=== PATIENT | female | born 1960 | race Caucasian/White ===

== ENCOUNTER → 2017-12-06 16:18 | Outpatient (CLI) | payer OTHER, SELFPAY ==
[2017-12-06 17:39] LABS: Absolute Lymphocyte Count 1.96 X10^3/ul (0.83-4.51); Absolute Neutrophil Count 5.8 X10^3/uL (2.0-7.7); Basophil# 0.06 X10^3/uL; Basophil% 0.7 % (0-1); Eosinophil# 0.15 X10^3/uL; Eosinophils% 1.8 % (0-5); Hematocrit 41.8 % (37-47); Hemoglobin 14.2 g/dl (12.0-15.0); Lymphocyte # 1.96 X10^3/ul (4.0); Mean Corpuscular Hgb 30.7 pg (27.0-32.0); Mean Corpuscular Volume 90.5 fL (81-99); Mean Platelet Vol. 11.1 fl (6.2-12.0); Monocyte# 0.59 X10^3/uL; Monocyte% 6.9 % (0-10); Neutrophil # 5.75 X10^3/uL (2.7-7.7); Neutrophil % 67.4 % (47-70); Platelet Count 294 K/mm3 (150-450); RBC Distribution Width CV 13.5 % (11.6-14.6); RBC Distribution Width SD 44.4 fl (35.1-43.9); Red Blood Count 4.62 M/mm3 (4.2-5.4); White Blood Count 8.5 K/mm3 (4.4-11.0)
[2017-12-06 17:57] LABS: POSITIVE COUNT NO; POSITIVE DIFFERENTIAL NO; POSITIVE MORPHOLOGY NO
[2017-12-06 18:17] LABS: ALB/GLOB Ratio 1.1 RATIO (0.9-2.4); AST(SGOT) 18 U/L (15-37); Alanine Aminotransfer ALT/SGPT 28 U/L (13-56); Albumin, Serum 3.8 g/dL (3.2-5.0); Alkaline Phosphatase 88 U/L (45-117); Anion Gap 10 (5-15); BUN 29 mg/dL (7-18); BUN/Creat Ratio 43.3 RATIO (10-20); Calcium,Total 8.7 mg/dL (8.5-10.1); Chloride 105 mmol/L (98-107); Creatinine, Serum 0.67 mg/dL (0.55-1.02); EST Glomerular Filtration Rate 96 mL/min (>60); Est Glom Filt Rate - Afr Amer 116 mL/min (>60); Globulin 3.5 g/dL (2.2-4.2); Glucose 91 mg/dL (70-110); Potassium 3.9 mmol/L (3.5-5.1); Protein, Total 7.3 g/dL (6.4-8.2); Sodium Level 141 mmol/L (136-145)
== END ==
PROVIDERS: Family Provider Preventive Medicine Occupational Medicine; PCP Preventive Medicine Occupational Medicine; Visit Provider Family Medicine
DX: Z01.818 Encounter for other preprocedural examination (principal)
CPT/HCPCS: 36415; 80053; 85025

== ENCOUNTER 2017-12-22 06:06 | Day surgery (SDC) | payer OTHER, SELFPAY ==
[2017-12-22 06:28] VITALS: BP 140/88; PULSE 70; RESP 16; TEMP 36.6; O2SAT 95; BMI 42.2
[2017-12-22 08:52] VITALS: BP 140/88; BP 172/80; PULSE 71; RESP 16; TEMP 36.6; O2SAT 97
[2017-12-22 09:09] LABS: Source- Body Fluid SYNOVIAL
[2017-12-22 09:11] LABS: Body Fluid QC Type(s) BF1Q
--- NOTE | 2017-12-23 11:56 | PCM.OPRPT ---
Report of Operation Date of Procedure: 12/22/17 Pre-Operative Diagnosis: Ganglion cyst left foot Post-Operative Diagnosis: Same Surgery/Procedure Performed:: Aspiration and corticosteroid injection of left foot ganglion cyst Description of Surgical Findings:: See procedure details. 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 Carmichael Type of Anesthesia:: Local Specimen's removed: Fluid from cyst left foot sent to pathology for further evaluation Drains: None Estimated Blood Loss (mL): < 1 mL Fluids Replaced: None Description of Procedure: Indications/Procedure: This is a 57 year old female with chronic left foot pain. She has tried extensive treatment so far and symptoms persist. MRI on the left foot did show a ganglion cyst present at the level of the 5th metatarsal base and 5th metatarsal cuboid joint area. After reviewing the possible benefits vs risks (pain, infection, atrophy, rupture, steroid flare, etc), the patient elected to proceed with an ultrasound guided aspiration and corticosteroid injection to the ganglion cyst left foot. The patient was resting comfortably on the bed in room in the pre operative holding area of the hospital. Using the diagnostic ultrasound, the cyst was imaged and visualized plantar 5th metatarsal head extending to level of the 5th metatarsal cuboid joint; image was saved and printed. The patient's left foot was cleansed with 70% isopropyl alcohol. A total of 10mL of 0.25% Bupivicaine plain was given as a regional nerve block around the proximal foot to block the lateral column nerves. The foot was again cleansed with 70% isopropyl alcohol, and once anesthesia was obtained the cyst was again visualized and aspirated. Minimal fluid was aspirated (Less than 0.5mL) , and mainly blood, but did have some gel synovial appearing fluid consistent with a ganglion cyst. There was no necrosis, no purulence, no carrington or suspicious appearing material or fluid. The aspirated fluid was sent to pathology for further evaluation. The site was re-imaged using the diagnostic ultrasound, and cyst appeared to be deflated, image was saved and printed. At this time, 2mL of 0.25% Marcaine plain, 2mg (0.5mL) of Dexamethasone phosphate, and 20mg (0.5mL) of Depo Medrol was injected into the site of the cyst in sterile fashion. Bandaids applied with overlying shania bandage. Patient tolerated well with no complications. Recommended icing and compression therapy, which was discussed with her. Limit activities; no running, jumping, prolonged time on feet, or high impact activities for 1 week. She was discharged home in good condition. She is to follow up with me in 1 week or sooner if needed. All of her questions were answered. Grafts/Implants Used: None - Complications None
--- NOTE | 2017-12-23 12:09 | OP.PCM_ITS ---
Report of Operation Date of Procedure: 12/22/17 Pre-Operative Diagnosis: Ganglion cyst left foot Post-Operative Diagnosis: Same Surgery/Procedure Performed:: Aspiration and corticosteroid injection of left foot ganglion cyst Description of Surgical Findings:: See procedure details. hydrogen treater: Dr. Carmichael Type of Anesthesia:: Local Specimen's removed: Fluid from cyst left foot sent to pathology for further evaluation Drains: None Estimated Blood Loss (mL): < 1 mL Fluids Replaced: None Description of Procedure: Indications/Procedure: This is a 57 year old female with chronic left foot pain. She has tried extensive treatment so far and symptoms persist. MRI on the left foot did show a ganglion cyst present at the level of the 5th metatarsal base and 5th metatarsal cuboid joint area. After reviewing the possible benefits vs risks (pain, infection, atrophy, rupture, steroid flare, etc), the patient elected to proceed with an ultrasound guided aspiration and corticosteroid injection to the ganglion cyst left foot. The patient was resting comfortably on the bed in room in the pre operative holding area of the hospital. Using the diagnostic ultrasound, the cyst was imaged and visualized plantar 5th metatarsal head extending to level of the 5th metatarsal cuboid joint; image was saved and printed. The patient's left foot was cleansed with 70 % isopropyl alcohol. A total of 10mL of 0.25% Bupivicaine plain was given as a regional nerve block around the proximal foot to block the lateral column nerves. The foot was again cleansed with 70% isopropyl alcohol, and once anesthesia was obtained the cyst was again visualized and aspirated. Minimal fluid was aspirated (Less than 0.5mL) , and mainly blood, but did have some gel synovial appearing fluid consistent with a ganglion cyst. There was no necrosis , no purulence, no carrington or suspicious appearing material or fluid. The aspirated fluid was sent to pathology for further evaluation. The site was re- imaged using the diagnostic ultrasound, and cyst appeared to be deflated, image was saved and printed. At this time, 2mL of 0.25% Marcaine plain, 2mg (0.5mL) of Dexamethasone phosphate, and 20mg (0.5mL) of Depo Medrol was injected into the site of the cyst in sterile fashion. Bandaids applied with overlying shania bandage. Patient tolerated well with no complications. Recommended icing and compression therapy, which was discussed with her. Limit activities; no running , jumping, prolonged time on feet, or high impact activities for 1 week. She was discharged home in good condition. She is to follow up with me in 1 week or sooner if needed. All of her questions were answered. Grafts/Implants Used: None - Complications None
[2017-12-25 10:11] LABS: Pathologist Review Reviewed
== END 2017-12-22 08:40 | disposition home or self-care (01) ==
LOC: SDC 06:06 → AC 06:08
PROVIDERS: Family Provider Preventive Medicine Occupational Medicine; PCP Preventive Medicine Occupational Medicine; Visit Provider Podiatrist
DX: M67.472 Ganglion, left ankle and foot (principal); E03.9 Hypothyroidism, unspecified; M79.7 Fibromyalgia; G47.30 Sleep apnea, unspecified
CPT/HCPCS: 20612; 89060

== ENCOUNTER → 2018-02-14 16:36 | Outpatient (CLI) | payer OTHER, SELFPAY ==
[2018-02-21 13:46] LABS: HPV Reflexed? NOT INDICATED
== END ==
PROVIDERS: Visit Provider Obstetrics & Gynecology
DX: Z12.4 Encounter for screening for malignant neoplasm of cervix (principal)
CPT/HCPCS: 88175; G0145

== ENCOUNTER → 2018-03-26 14:34 | Outpatient (CLI) | payer OTHER, SELFPAY ==
[2018-03-26 15:46] LABS: Absolute Lymphocyte Count 2.14 X10^3/ul (0.83-4.51); Basophil# 0.07 X10^3/uL; Eosinophil# 0.15 X10^3/uL; Eosinophils% 2.2 % (0-5); Hematocrit 39.9 % (37-47); Hemoglobin 13.4 g/dl (12.0-15.0); Lymphocyte # 2.14 X10^3/ul (4.0); Lymphocyte % 31.4 % (19-41); Mean Corp Hgb Conc 33.6 g/gl (32-36); Mean Corpuscular Hgb 30.5 pg (27.0-32.0); Mean Corpuscular Volume 90.7 fL (81-99); Mean Platelet Vol. 11.4 fl (6.2-12.0); Monocyte% 5.9 % (0-10); Neutrophil # 4.03 X10^3/uL (2.7-7.7); Neutrophil % 59.2 % (47-70); Platelet Count 284 K/mm3 (150-450); RBC Distribution Width CV 13.3 % (11.6-14.6); RBC Distribution Width SD 43.5 fl (35.1-43.9); White Blood Count 6.8 K/mm3 (4.4-11.0)
[2018-03-26 15:48] LABS: ALB/GLOB Ratio 1.2 RATIO (0.9-2.4); AST(SGOT) 18 U/L (15-37); Alanine Aminotransfer ALT/SGPT 26 U/L (13-56); Albumin, Serum 3.8 g/dL (3.2-5.0); Alkaline Phosphatase 73 U/L (45-117); Anion Gap 8 (5-15); BUN 20 mg/dL (7-18); Calcium,Total 8.4 mg/dL (8.5-10.1); Chloride 107 mmol/L (98-107); EST Glomerular Filtration Rate 78 mL/min (>60); Est Glom Filt Rate - Afr Amer 95 mL/min (>60); Globulin 3.2 g/dL (2.2-4.2); Glucose 98 mg/dL (74-106); Potassium 3.7 mmol/L (3.5-5.1); Sodium Level 145 mmol/L (136-145)
[2018-03-26 16:08] LABS: POSITIVE COUNT NO; POSITIVE DIFFERENTIAL NO; POSITIVE MORPHOLOGY NO
== END ==
PROVIDERS: Family Provider Family Medicine; Visit Provider Family Medicine
DX: Z01.818 Encounter for other preprocedural examination (principal)
CPT/HCPCS: 36415; 80053; 85025

== ENCOUNTER → 2018-04-06 16:58 | Outpatient (CLI) | payer OTHER, SELFPAY ==
--- NOTE | 2018-04-06 17:30 | MRI_ITS ---
STUDY: MRI LEFT MIDFOOT REASON FOR EXAM: Female, 58 years old. Pain. TECHNIQUE: Standardized fat and water weighted pulse sequences were obtained in all 3 orthogonal planes. COMPARISON: June 13, 2017 FINDINGS: There is a joint effusion of the talonavicular articulation with capsular distention. Normal calcaneocuboid articulation. Normal navicular-cuneiform articulations. Normal intercuneiform articulations. Normal first tarsometatarsal articulation. Normal Lisfranc ligament. Normal second and third tarsometatarsal articulations. There is mild degenerative arthrosis of the cuboid fourth and cuboid fifth tarsometatarsal articulations. Normal first through third metatarsi. There is edema of the base and shaft of the fourth and fifth metatarsals, series 4 images 16/ through . Normal tibialis anterior tendon. Normal extensor hallucis longus tendon. Normal extensor digitorum longus tendons. There is fluid in the sheath of the peroneal tendons. Normal peroneus longus tendon and distal insertion. Partial split tear of the peroneus brevis tendon, series 7 image 39/45 through 42/45.. There is stable 0.6 cm cystic region adjacent to the distal insertion on the fifth metatarsal, series 7 image 28/45. Normal intrinsic muscles of the mid and forefoot region. Normal extensor digitorum brevis muscle. Normal subcutis adipose space. MRI/Lower Ext/No Jt/w/o IMPRESSION: Stress fractures of the fourth and fifth metatarsals. Tenosynovitis with partial split tear of the peroneal brevis and cystic region adjacent to the insertion. Electronically Signed: Helder Mcneill MD at 15:23 EDT , Service support ,
== END ==
PROVIDERS: Family Provider Preventive Medicine Occupational Medicine; PCP Preventive Medicine Occupational Medicine; Visit Provider Podiatrist
DX: M67.472 Ganglion, left ankle and foot (principal)
CPT/HCPCS: 73718

== ENCOUNTER → 2018-05-08 15:14 | Outpatient (CLI) | payer OTHER, SELFPAY ==
[2018-05-08 18:00] LABS: Absolute Lymphocyte Count 2.46 X10^3/ul (0.83-4.51); Absolute Neutrophil Count 4.6 X10^3/uL (2.0-7.7); Basophil# 0.06 X10^3/uL; Basophil% 0.8 % (0-1); Eosinophil# 0.14 X10^3/uL; Eosinophils% 1.8 % (0-5); Hematocrit 43.1 % (37-47); Hemoglobin 14.6 g/dl (12.0-15.0); Lymphocyte # 2.46 X10^3/ul (4.0); Lymphocyte % 31.4 % (19-41); Mean Corp Hgb Conc 33.9 g/gl (32-36); Mean Corpuscular Hgb 31.2 pg (27.0-32.0); Mean Corpuscular Volume 92.1 fL (81-99); Monocyte# 0.54 X10^3/uL; Monocyte% 6.9 % (0-10); Neutrophil # 4.61 X10^3/uL (2.7-7.7); Neutrophil % 58.7 % (47-70); Platelet Count 325 K/mm3 (150-450); RBC Distribution Width CV 13.3 % (11.6-14.6); Red Blood Count 4.68 M/mm3 (4.2-5.4); White Blood Count 7.8 K/mm3 (4.4-11.0)
[2018-05-08 18:01] LABS: POSITIVE COUNT NO; POSITIVE DIFFERENTIAL NO; POSITIVE MORPHOLOGY NO
[2018-05-08 18:15] LABS: ALB/GLOB Ratio 0.9 RATIO (0.9-2.4); AST(SGOT) 16 U/L (15-37); Alanine Aminotransfer ALT/SGPT 29 U/L (13-56); Albumin, Serum 3.6 g/dL (3.2-5.0); Alkaline Phosphatase 96 U/L (45-117); Anion Gap 7 (5-15); BUN 17 mg/dL (7-18); BUN/Creat Ratio 22.5 RATIO (10-20); Calcium,Total 8.4 mg/dL (8.5-10.1); Chloride 107 mmol/L (98-107); Creatinine, Serum 0.75 mg/dL (0.55-1.02); EST Glomerular Filtration Rate 84 mL/min (>60); Est Glom Filt Rate - Afr Amer 101 mL/min (>60); Globulin 3.8 g/dL (2.2-4.2); Glucose 114 mg/dL (74-106); Potassium 3.9 mmol/L (3.5-5.1); Protein, Total 7.4 g/dL (6.4-8.2); Sodium Level 140 mmol/L (136-145)
== END ==
PROVIDERS: Visit Provider Family Medicine
DX: Z01.818 Encounter for other preprocedural examination (principal)
CPT/HCPCS: 36415; 80053; 85025

== ENCOUNTER 2018-05-11 05:58 | Day surgery (SDC) | payer OTHER, SELFPAY ==
[2018-05-11] VITALS (7 sets, daily range): BP systolic 130–155; BP diastolic 79–93; PULSE 71–79; RESP 16; TEMP 36.1–36.8; O2SAT 91–95; BMI 44.8
--- NOTE | 2018-05-11 06:44 | EKG12_ITS ---
Test Reason : PRE OP Blood Pressure : / mmHG Vent. Rate : 066 BPM Atrial Rate : 066 BPM P-R Int : 172 ms QRS Dur : 086 ms QT Int : 442 ms P-R-T Axes : 081 -02 022 degrees QTc Int : 463 ms Normal sinus rhythm Poor R wave progression Confirmed by EDIE ACUNA, FLORA ([id number]), editor trade journal ANTWAN HELM ([id number]) on 05/17/2018 2:25:59 PM Referred By: Rai Townsend Confirmed By:FLORA IRIZARRY MD
--- NOTE | 2018-05-11 07:25 | RAD_ITS ---
STUDY: X-RAY - LEFT FOOT CLINICAL: Female, 58 years old. ORIF of the fourth and fifth metatarsals and cuboid joint. TECHNIQUE: 4 cone-down view(s) of the foot were obtained intraoperatively.. COMPARISON: None. FINDINGS: Intraoperative imaging provided for ORIF of the fourth and fifth metatarsals cuboid joints. RAD/Foot 2 Views IMPRESSION: Intraoperative imaging provided. Electronically Signed: Jya Brown MD at 12:54 EDT Tel [phone], Service support ,
[2018-05-11] MEDS: Cefazolin 2 GM in 0.9% Normal Saline 100 ML IV (07:30)
--- NOTE | 2018-05-11 07:30 | TESH_PTH ---
PATIENT: OREN RIOS LOC: [facility] [place] U#:[id number] AGE/SX: 58/F ROOM: RE05/11/[address]: RONAL DwyerM : 1960 BED: DIS: 05/11/2018 SPEC #: [id number] RECD: 05/11/18 10:28 STATUS: LEATHA NELLA #: [id number] KEMAR: 05/11/18 07:[address]: Rai Townsend DEPT: SURGICAL PATHOLOGY RECD BY: Oskar Baxter ENTERED: 05/11/18 11:42 SP TYPE: TENDON OTHR DR: Dr. Diego Flower, DO Tissues: Tendon and tendon sheath, NOS Procedures: Decalcification bone/plaque Surgery Specimen Level IV HEADER OPERATION: Arthrotomy, arthroplasty, ORIF fourth and fifth metatarsal cuboid joint PRE-OP DIAGNOSIS: Left foot pain, tear peroneus brevis tendon, degenerative changes fourth/fifth metatarsal cuboid joint, bone marrow edema bases of fourth/fifth metatarsals TISSUE SUBMITTED: Fourth and fifth metatarsal cuboid joint and peroneus brevis tendon ? left MICROSCOPIC DIAGNOSIS Fourth and fifth metatarsal cuboid joint and tendinous tissue, excision: Fragments of hyaline cartilage and bone with reparative and reactive change. AM:sara 05/15/18 MICROSCOPIC DESCRIPTION Slides are reviewed. GROSS DESCRIPTION Received in fixative is one container labeled with the patient's name and designated left fourth and fifth metatarsal cuboid joint. The specimen consists of multiple irregular fragments of indurated, pink-white soft tissue with adherent fragments of bone that in aggregate measure 2.5 x 2 x 0.2 cm. The specimen is totally submitted in one cassette after decalcification. / AM:sara 05/11/18 TC:5 [facility]: [id number]
[2018-05-11 07:33] LABS: Thyroid Stim Hormone (TSH) 2.33 uIU/mL (0.358-3.74)
[2018-05-11] MEDS: Calcium Chloride 1 GM/10 ML Syringe IV (08:00)
[2018-05-11] MEDS: Heparin 10,000 UNITS/10 ML Vial 10000 UNITS (08:00)
[2018-05-11] MEDS: Bupivacaine Mpf 0.5% 30 ML VIAL (09:49)
--- NOTE | 2018-05-11 10:02 | RAD_ITS ---
STUDY: X-RAY - LEFT FOOT CLINICAL: Female, 58 years old. Postoperative evaluation. TECHNIQUE: 3 view(s) of the foot. COMPARISON: None. FINDINGS: The patient is status post pinning at the base of the fourth and fifth metatarsal to the cuboid bone. RAD/Foot min 3 Views IMPRESSION: Pinning of the base of the fourth and fifth metatarsals to the cuboid bone. Electronically Signed: Jay Brown MD at 13:46 EDT Tel [phone], Service support ,
--- NOTE | 2018-05-11 10:02 | PCM.DC.POD ---
Discharge Diet: Light diet - advance as tolerated Discharge Activity: May Not Drive Weight Bearing Status: No weight bearing - No weightbearing left foot Keep extremity elevated above heart level: Left Leg - Keep left foot elevated using pillows for at least 50 minutes of every hour Call your doctor if your incision/area has: Continuous Slow Oozing, Sudden Increased Bleeding, Foul Smelling Discharge Call your doctor if you observe: Fever of 101 or Higher, Coldness, Increased Pain, Shortness of breath, Chest pain, Increased palpitations (irregular heartbeat), Calf discomfort, Uncontrolled pain Cleanse incision/area with: Do not get Incision Wet, Keep Dressing Clean & Dry Allergies/Adverse Reactions: Allergies No Known Allergies Allergy (Verified 01/21/16 15:27) Medications to take at Discharge Levothyroxine [Synthroid] 75 mcg PO DAILY 01/21/16 Pregabalin [Lyrica] 150 mg PO TID 01/21/16 Cholecalciferol (Vitamin D3) [Vitamin D3] 2,000 unit PO DAILY 12/22/17 Ibuprofen [Ibu] 800 mg PO TID #30 tab 05/11/18 Oxycodone HCl/Acetaminophen [Percocet 5/325] 1 - 2 tab PO Q6H PRN PRN #30 tab 05/11/18 The following prescriptions were given: Oxycodone HCl/Acetaminophen [Percocet 5/325] 1 - 2 tab PO Q6H PRN PRN #30 tab PRN Reason: Pain Ibuprofen [Ibu] 800 mg PO TID #30 tab Primary Care Physician: Diego Flower DO [Primary Care Provider] - Test Results: Test results from this visit will be discussed in further detail at your follow-up appointment, if applicable. Please Follow Up With: Rai Townsend DPM When: within 1 week, sooner if needed
--- NOTE | 2018-05-11 10:09 | OP.PCM_ITS ---
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; Subluxation 4th/5th metatarsal cuboid joint, peroneus brevis tendon tear, cyst all left foot Post-Operative Diagnosis: Same Surgery/Procedure Performed:: Arthrotomy arthroplasty 4th/5th metatarsal cuboid joint, excision of cyst, repair of peroneus brevis tendon, bone marrow aspiration from calcaneus with injection of concentrated bone marrow aspirate into 4th/5th metatarsal cuboid joint, open reduction and fixation of 4th/5th metatarsal cuboid joint - all left foot Description of Surgical Findings:: Degenerative changes of the 4th/5th metatarsal cuboid joint, subluxation of the 4th/5th metatarsal cuboid joint, cyst at level of the 4th/5th metatarsal cuboid joint, peroneus brevis tendon tear, all left 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 Fonseca Type of Anesthesia:: General Specimen's removed: debrided 4th\5th metatarsal cuboid joint, debrided peroneus brevis tendon and removed cyst all left foot sent to pathology Estimated Blood Loss (mL): 20mL Description of Procedure: Indications: Patient is a 58 year old female with chronic left lateral column foot pain. Pain persists despite extensive nonsurgical care custom foot orthotics, icing, rest, activity modifications, immobilization with CAM Walker, AFO bracing, corticosteroid injections, aspiration of cyst, NSAIDs, and medications. She continues to have pain. Pre-operative MRI has shown arthritic changes of the 4th / 5th metatarsal cuboid joints with bone marrow edema, well as a cyst and split peroneus brevis tear, there was also noted to be findings consistent with subluxation of the 4th metatarsal base - this corresponded to the site where her pain was located, along with swelling. We discussed all of the options since she continues to have pain despite nonsurgical care. We discussed arthrotomy/arthroplasty with open reduction and fixation of the 4th/ 5th metatarsal cuboid joints along with bone marrow aspiration and injection of concentrated bone marrow aspirate into the site, and debridement and repair of peroneus brevis tendon, we also discussed possible arthrodesis of the 4th/5th metatarsal cuboid joint. I had patient get a second opinion with Dr. Mamadou Rocha, who also discussed findings and options with the patient. We all agreed to proceed with arthrotomy/arthroplasty with open reduction and fixation of the 4th/5th metatarsal cuboid joints along with bone marrow aspiration and injection of concentrated bone marrow aspirate into the site, and debridement and repair of peroneus brevis tendon - try to avoid arthrodesis at this time. This was discussed with patient in great detail. All of the possible benefits vs risks, and potential complications were discussed with her in great detail. Patient would like to avoid arthrodesis, however she is well aware pain and symptoms may persist, and she may ultimately need arthrodesis in the future. This was discussed with her in detail. Typical healing time was reviewed with her as well. All of her questions were answered, and she would like to proceed. The consent forms were reviewed with her, and she freely signed them. No guarantees were given nor implied. Operative Procedure: Patient was brought back into the operating room and was placed on the operative room table in the supine position. She was carefully secured to the operating room table with a safety belt around her waist. A timeout was performed and the patient was properly identified and the surgical plan was confirmed. The patient received 2 grams of IV cefazolin for antibiotic prophylaxis. The patient received general anesthesia per the anesthesia team. A well padded pneumatic tourniquet was applied around the patient's left thigh. The left foot was scrubbed, prepped and draped in the usual aseptic fashion. Bone marrow aspiration and injection of concentrated bone marrow aspirate: Attention was directed to the lateral wall of the left calcaneus at the safe zone. A Jamshidi needle was inserted into the calcaneal body through the safe zone of the lateral calcaneal wall. The trocar was removed. 60mL of bone marrow aspirate was obtained through the cannula. The Jamshidi (with trocar and cannula ) needle was redirected multiple times. The bone marrow aspirate was spun down to 3mL of concentrated bone marrow aspirate for later use. The concentrated bone marrow aspirate was injected at the end (just after skin closure) of the procedure into the 4th/5th metatarsal cuboid joint. The left foot was exsanguinated using an Esmarch bandage and the left foot was elevated, the left thigh pneumatic tourniquet was inflated to 350mmHg. Arthrotomy/Arthroplasty / Open Reduction and Fixation of the 4th/5th metatarsal cuboid joints: A skin incision was made overlying the 4th/5th metatarsal cuboid joints using a 15 scalpel blade. Careful dissection was completed down to the capsule of the 4th/5th metatarsal cuboid joint, where an arthrotomy was completed at the dorsal aspect. The 4th/5th metatarsal cuboid joints were visualized. It was note there was some subluxation of the 4th metatarsal base more plantar than normal. There were some osteophytes to the dorsal joint surfaces along with some yellow nonviable cartilage present at the dorsal aspects. There was a 0.6cm fluid filled cyst present overlying the 5th metatarsal base, as well as a hard osseous like fragment to the plantar aspect of the 5th metatarsal base. At this time the osteophytes were debrided and the nonviable yellow cartilage was also debrided away (dorsal aspect). The sites of the debrided cartilage was drilled with a 0.062 inch kwire to help stimulate fibrocartilage. The cyst was excised and osseous like fragment was also excised using a 15 scalpel blade. The debrided and excised tissue were sent to pathology. The remaining cartilage and tissues appeared healthy and viable. The site was flushed out with copious amounts of normal saline solution. The 4th metatarsal base was reduced back into normal alignment, and was fixated with 1 0.062 inch kwire going from the base of the 4th metatarsal to the cuboid. The 5th metatarsal was also placed into normal alignment and was fixated with 1 0.062 inch kwire going from the base of the 5th metatarsal to the cuboid. Proper reduction and fixation were confirmed visually and also with intra operative fluoroscopy. Alignment was anatomic. The sites were stable and in good position. The site was flushed out with copious amounts of normal saline solution. The dorsal 4th/5th metatarsal cuboid capsule and ligaments were repaired using 3-0 Vicryl. The subcutaneous tissue was reapproximated using 3-0 Vicryl. The skin was reapproximated using 4-0 Monocryl. The concentrated bone marrow aspirate was injected as noted above. Peroneus Brevis Tendon Debridement/Repair: A longitudinal skin incision was made over the peroneus brevis tendon at the level of the hindfoot (from the tip of the fibula heading toward the base of the 5th metatarsal). Careful dissection was completed down to the peroneal tendon sheath. The peroneal tendon sheath was incised and the peroneus brevis tendon was visualized. There was noted to be a longitudinal split year with significant flattening present. The tear extended from the base of the 5th metatarsal insertion point to the just slightly distal to the tip of the fibula. There was some yellow nonviable tendinosis present to the tendon at this level as well. The remainder of the tendon was healthy and viable with no tear present proximally to this site. The tendon was debrided using a 15 scalpel blade, excising the nonviable tendinosis , and the peroneal tendon was repaired and tubularized using 3-0 Vicryl. The site was flushed out with copious amounts of normal saline solution. The subcutaneous tissue was reapproximated using 3-0 Vicryl. The skin was reapproximated using 4-0 Monocryl. Of note the pneumatic tourniquet was deflated at 90 minutes at time of closure. Hemostasis had been achieved. There was normal temperature to the foot with CFT < 2 seconds to all toes. Cavilon was painted to the skin edges of the sutures skin incisions, and steristrips were applied across the sutured skin incisions. A total of 20mL of a 50/50 mixture of 1% Lidocaine plain and 0.5% Bupivacaine plain was given as a local block around the surgical site for post op pain control. A dressing was applied which consisted of Betadine soaked Adaptic, 4x4 gauze, Kerlix and Jace bandage. Patient tolerated the above procedure and anesthesia well with no complications. The patient was transported from the operating room to the recovery room with vital signs stable and in good condition. Post operative orders were placed. Left foot xrayx were obtained, 3 views, which confirmed proper placement and fixation, as well as proper alignment of he 4th/5th metatarsal cuboid joints. Post operative instructions were dispensed both verbal and written, these were reviewed with patient and her family present with her today. Patient to remain nonweightbearing to the left foot at all times , keep the left foot elevated for at least 50 minutes of every hour, and keep the dressing clean, dry, and intact. She was given a prescription for Percocet 5 /325mg 1-2 tabs PO q 6 hours PRN pain as well as Ibuprofen 800mg PO TID for pain control. Patient to follow up with me in 1 week, sooner if needed. Grafts/Implants Used: 2 x 0.062 kwires
== END 2018-05-11 13:59 | disposition home or self-care (01) ==
LOC: SDC 06:00 → AC 06:01
PROVIDERS: Family Provider Preventive Medicine Occupational Medicine; PCP Preventive Medicine Occupational Medicine; Visit Provider Podiatrist
PROC: (CPT 28022; principal; 2018-05-11 07:15)
DX: M19.072 Primary osteoarthritis, left ankle and foot (principal); S93.322A Subluxation of tarsometatarsal joint of left foot, initial encounter; M25.872 Other specified joint disorders, left ankle and foot; G47.30 Sleep apnea, unspecified; M79.7 Fibromyalgia; E03.9 Hypothyroidism, unspecified
CPT/HCPCS: 28022; 28485 ×2; 28899; 73620; 73630; 76000; 84443; 88304; 88305; 88311; 93005; C1713; J7120; J2405

== ENCOUNTER 2018-06-19 07:09 | Emergency (ER) | payer OTHER, SELFPAY ==
[2018-06-19 07:09] VITALS: BP 163/86; PULSE 77; RESP 15; TEMP 36.1; BMI 45.1
--- NOTE | 2018-06-19 07:40 | ED.VISSUMM ---
- ER Visit Summary Date of Service: 06/19/18 Patient is a private outpatient of Dr. Townsend. She has a pin in her left foot that he tried to remove in his office yesterday. He was unable to remove the pin in the office and advised her to come to the ED today for removal under fluoroscopy. He was called on her arrival and is at bedside to evaluate her. This note was generated with [employer] dictation software. It may contain incorrect words, spelling, and punctuation that were not noted in review of the chart prior to signing ED Disposition - Plan for ED Patient: Chief Complaint: Other, Pain/Inj Referrals: Diego Flower DO [Primary Care Provider] -
--- NOTE | 2018-06-19 08:56 | PCM.DC.POD ---
Discharge Diet: No Restrictions Weight Bearing Status: Weight bearing as tolerated - May weightbear on left foot with use of CAM Walker, but limit weightbearing and activity as much as possible. Keep extremity elevated above heart level: Left Leg - Elevate left foot as much as possible. Call your doctor if your incision/area has: Continuous Slow Oozing, Sudden Increased Bleeding, Foul Smelling Discharge Call your doctor if you observe: Fever of 101 or Higher, Coldness, Increased Pain, Shortness of breath, Chest pain, Calf discomfort, Uncontrolled pain Cleanse incision/area with: Do not get Incision Wet, Keep Dressing Clean & Dry Allergies/Adverse Reactions: Allergies No Known Allergies Allergy (Verified 06/19/18 07:11) Medications to take at Discharge Levothyroxine [Synthroid] 75 mcg PO DAILY 01/21/16 Pregabalin [Lyrica] 150 mg PO TID 01/21/16 Cholecalciferol (Vitamin D3) [Vitamin D3] 2,000 unit PO DAILY 12/22/17 Ibuprofen [Ibu] 800 mg PO TID #30 tab 05/11/18 Oxycodone HCl/Acetaminophen [Percocet 5/325] 1 - 2 tab PO Q6H PRN PRN #30 tab 05/11/18 Amoxicillin/Potassium Clav [Augmentin 875-125 Tablet] 06/19/18 Primary Care Physician: Diego Flower DO [Primary Care Provider] - Test Results: Test results from this visit will be discussed in further detail at your follow-up appointment, if applicable. Please Follow Up With: Rai Townsend DPM When: on , sooner if needed
--- NOTE | 2018-06-19 08:59 | PCM.PROGNOTE ---
Subjective: Patient presents today for migrated kwire left foot from left foot surgery on 05/11/18. She has no new complaints. - Physical Exam General: Alert, Oriented x3, Cooperative, No apparent distress Extremities: Capillary Refill Less than 3 Seconds, No Calf Tenderness, Peripheral Pulses Normal, - - Left foot with no cellulitis, no drainage, no evidence of infection. Skin intact, neurovascular status intact to foot, left. No visible abscess, no maloder, no necrosis, no fluctuance, no evidence of compartment syndrome left foot. Psych/Mental Status: Alert and oriented to time, place, person, mood and affect Vital Signs Temp Pulse Resp BP 96.9 F L 77 15 163/86 H 06/19/18 07:09 06/19/18 07:09 06/19/18 07:09 06/19/18 07:09 Weight: 119.4 kg Body Mass Index (BMI) 45.1 Medical Necessity - Tobacco Use Smoking Status: Never smoker Assessment/Plan All Active Problems Postmenopausal (Acute) Endometrial thickening on ultra sound (Acute) Retained hardware left foot. She is here for removal of migrated kwire left foot. She would like to have this removed, again reviewed procedure as well as possible benefits vs risks, and alternative options. Consent form has been reviewed with her, and she has freely signed it. The patient was resting comfortable in bed. The skin on the left foot was cleansed with 70% isopropyl alcohol. A total of 30mL of 1% Lidocaine plain with 1:100,000 epi was given as a local nerve block around the heel and 4th ray of the left foot. The left foot was scrubbed, prepped and draped in aseptic fashion. Once anesthesia was obtained a 1cm linear skin incision was made to the medial heel as well as to the dorsal aspect of the 4th metatarsal base using a 15 blade. Careful dissection was completed down to the kwire. It was visualized on mini C-arm flouroscopy. The kwire had to be identified and pushed out from the heel due to significant proximal migration into the 4th metatarsal. The kwire was removed in toto. The site was flushed out with copious amounts of normal saline solution. The skin incisions were reapproximated using 4-0 Nylon. The incision sites were painted with betadine solution. A dressing was applied which consisted of gauze, kerlix and shania dressing. Patient tolerated procedure well with no complications. There was ~20mL of blood loss, hemostasis achieved at end of procedure. Vascular status was intact at end of procedure with CFT < 2 seconds to all toes and foot normal temperature. Post procedure instructions were given. Limit activity on foot, and keep foot elevated as much as possible. Keep foot protected in CAM Walker. She has percocet for pain control, and also going to finish course of Augmentin PO q 12 hours as prescribed yesterday. She is to follow up with me in the office on . She was discharged home in good condition.
--- NOTE | 2018-06-19 09:09 | ED.RN ---
dr hernandez gave pt dc instructions pt wheeled to the car.
== END 2018-06-19 09:11 | disposition home or self-care (01) ==
LOC: ED 09:04
PROVIDERS: Emergency Provider Podiatrist; Family Provider Preventive Medicine Occupational Medicine; PCP Preventive Medicine Occupational Medicine
DX: T84.293A Other mechanical complication of internal fixation device of bones of foot and toes, initial encounter (principal); Z18.89 Other specified retained foreign body fragments; Y83.8 Other surgical procedures as the cause of abnormal reaction of the patient, or of later complication, without mention of misadventure at the time of the procedure; Y92.9 Unspecified place or not applicable
CPT/HCPCS: 28192; 76000; 99282

== ENCOUNTER 2018-07-23 15:30 | Outpatient (RCR) | payer OTHER, SELFPAY ==
--- NOTE | 2018-07-06 08:13 | HP.PTEVAL ---
Patient's Visit Information OREN RIOS is a 58 year old F referred to Physical Therapy by Rai Townsend with a diagnosis of L ankle arthroplasty, bone marrow aspiration, ORIF pinning of 4th/5th met. Date of Evaluation: 07/04/18 Physical Therapist: Dionisio Weber - Visit Plan Frequency: 2-3x /Week Duration: 4 Weeks Plan: Start with ROM of L ankle, can start with initial strengthening as tolerated both for ankle and intrinsic stregnth. Progress to proprioception exercises as tolerated. - Subjective Subjective: Pt. is here today for her initial evaluation with diagnosis of L ankle arthroplasty, bone marrow aspiration and ORIF pinning of 4th/5th metatarsal/cuboid. Pt. reports not having relief with conservative care and ultimately needing surgery. Pt. had her initial surgery ~1 month ago, but had a subsequent surgery to fix a loosening of her pinning of the 5th metatarsal. Pt. is currently in a CAM boot, but is to slowly progress into her shoe (increasing 1 hour per day). Pt. reprots being compliant. She does have some N/T on the bottom of her L foot, but has improved since being in her shoe. She reports minimal pain with walking, and does not use and AD. Pt. is only negotiating stairs x1 daily due to not feeling very comfortable with this yet. Pt. does have a history of R TKA ~1 year ago and reports she has a need for the left as well. 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 - Pain L foot Pain Intensity (Out of 10): 1 Pain Intensity Range: 0, 4 - Objective POSTURE: Pt. has normal stance with CAM walker, but decreased L LE wt. shift. Pt. has normal iliac crest heights. PALPATION: Pt. has increased edema of L foot, non pitting. Pt. has healing incisions both at medial and lateral foot (to be removed later this week). Pt. has no signs of infection. Negative toyin's sign. Pt. has tenderness along plantar/doral surface of medial and lateral of 4th/5th ray. NEURO: Pt. has normal senation to light and sharp touch. Pt. has 2+ patellar/achilles DTR bilaterally. ROM: R ankle- DF 16deg, PF 40deg, INV 18deg, EVR 16deg. L ankle- DF 6deg, PF 30deg, INV 5deg, EVR 4deg. Pt. has normal ROM of B knees. MMT: R ankle/knee 5/5 throughout. L ankle- DF 4/5, PF 4/5, INV 4-/5, EVR 4-/5. L knee 5/5 throughout. GAIT: Pt. did not have shoe this date, but good tolerance to WBing with CAM boot. Pt. is weaning out of CAM walker at home. STAIRS: reciprocal pattern wtih CAM boot. Pt. is bring normal shoe to wear next visit. - Goals Goal 1:: Pt. to be I with HEP. Goal Time Frame: 4-6 Weeks Goal 2:: Pt. to have full ROM of L ankle without increase in symptoms. Goal Time Frame: 4-6 Weeks Goal 3:: Pt. to have increased L ankle MMT by 1/2 grade throughout. Goal Time Frame: 4-6 Weeks Goal 4:: Pt. to ambulate without CAM boot unlimited distances without increase in symptoms. Goal Time Frame: 4-6 Weeks Goal 5:: Pt. to return to all work activities without issues. Goal Time Frame: 4-6 Weeks - Rehabilitation Potential Physical Therapy Diagnosis: Pt. has signs and symptoms consistent with L ankle arthroplasty, bone marrow aspiration and ORIF pinning of 4th/5th metatarsal/cuboid and subsequent hypombility, weakness, difficulty with gait and increased pain. She would benefit from PT to increase ROM and strength, progressing to proprioception exercises as tolerated in order to increase tolerance to all WBing and work related activities. Rehabilitation Potential: Excellent - Anticipated Interventions Patient/Client Instruction: Educate patient on: Condition, Plan of Care, Risk Factors, Benefits of Fitness Program For the Purpose of:: To improve decision making, To facilitate caregiver knowledge, To improve self management, To prevent re-injury, To improve ability to perform tasks related to life management, To improve tolerance to ADL's Therapeutic Exercise to Include: Strength training, Power training, Balance training, Postural training, Flexibilty training, Gait and locomotor training, Passive ROM, Active ROM For the Purpose of:: To decrease pain, To decrease swelling/inflammation, To increase ROM, To improve nutrient delivery to tissue, To improve gait and locomotor functions, To improve health of tissue, To decrease soft tissue restriction, To increase flexibility/ROM Manual Therapy Techniques to Include: Scar massage, Passive ROM, Soft tissue mobilization For the Purpose of:: To decrease pain, To decrease swelling/inflammation, To increase ROM IF ES: Yes Cryotherapy (ice pack, ice massage): Yes Vasopneumatic device: Yes For the Purpose of:: To decrease pain, To decrease swelling/inflammation, To increase ROM Thank you for the opportunity to evaluate your patient. For Medicare and Medicare HMO plans, please review the plan of care and approve it. It will need to be FAXED BACK to us at [phone] for Medicare purposes. Please let me know if there are questions or concerns regarding this plan of care. Physician Signature: Date:
--- NOTE | 2018-08-31 09:12 | HP.PT.NRP ---
HP - Discharge Summary (1) - Patient Information OREN RIOS was seen in my office for initial evaluation on 07/04/18. The following Plan of Care was established for this patient: Initial Frequency: 2-3x /Week Initial Duration: 4 Weeks - Anticipated Interventions Patient/Client Instruction: Educate patient on: Condition, Plan of Care, Risk Factors, Benefits of Fitness Program For the Purpose of:: To improve decision making, To facilitate caregiver knowledge, To improve self management, To prevent re-injury, To improve ability to perform tasks related to life management, To improve tolerance to ADL's Therapeutic Exercise to Include: Strength training, Power training, Balance training, Postural training, Flexibilty training, Gait and locomotor training, Passive ROM, Active ROM For the Purpose of:: To decrease pain, To decrease swelling/inflammation, To increase ROM, To improve nutrient delivery to tissue, To improve gait and locomotor functions, To improve health of tissue, To decrease soft tissue restriction, To increase flexibility/ROM Manual Therapy Techniques to Include: Scar massage, Passive ROM, Soft tissue mobilization For the Purpose of:: To decrease pain, To decrease swelling/inflammation, To increase ROM IF ES: Yes Cryotherapy (ice pack, ice massage): Yes Vasopneumatic device: Yes For the Purpose of:: To decrease pain, To decrease swelling/inflammation, To increase ROM This patient was last seen in our office 07/23/18. Pertinent comments regarding their Physical therapy will appear below: Pt. was treated after her ankle arthoscopy in PT. Pt. was treated with initially ROM and progressed to strengthening and proprioception. Pt. was doing very well at our last visit and had returned to work. Pt. was to trial exercises on her own and follow up with PT as needed. Pt. as not been seen in ~6 weeks and will be DC from PT at this point in time. At this point I will be discontinuing this patient from physical therapy. I would be happy to see this patient again in the future if found appropriate by the physician. Thank you! Dionisio Weber
== END 2018-07-23 19:00 | disposition home or self-care (01) ==
LOC: PT 15:30
PROVIDERS: Family Provider Preventive Medicine Occupational Medicine; PCP Preventive Medicine Occupational Medicine; Visit Provider Podiatrist
DX: Z98.890 Other specified postprocedural states (principal)
CPT/HCPCS: 97110; 97162; 97530

== ENCOUNTER 2020-03-25 11:59 | Outpatient (RCR) | payer SELFPAY | END 2020-04-05 23:59 | LOC: NS 11:59 | PROVIDERS: PCP Preventive Medicine Occupational Medicine; Visit Provider Specialist | DX: Z71.3 Dietary counseling and surveillance (principal); E66.8 Other obesity; Z68.42 Body mass index [BMI] 45.0-49.9, adult | CPT/HCPCS: 97802 ==

== ENCOUNTER → 2020-03-27 13:12 | Outpatient (CLI) | payer OTHER, SELFPAY ==
[2018-09-04 16:34] VITALS: BMI 39.4
--- NOTE | 2020-03-27 13:23 | CT_ITS ---
STUDY: CT LEFT LOWER EXTREMITY/KNEE (SHREYA PROTOCOL) WITHOUT CONTRAST REASON FOR EXAM: Female, 60 years old. Varus deformity RADIATION DOSAGE (If Supplied By Facility): CTDIvol = ( ) mGy, DLP = ( ) mGycm TECHNIQUE: Transaxial CT imaging of the hip, knee, and ankle was performed. Coronal and sagittal images were reformatted. Individualized dose optimization techniques were used for this CT. COMPARISON: Prior comparison studies are not available for review at this time. FINDINGS: Normal urinary bladder. There is no pelvic fluid. There is no pelvic lymphadenopathy or mass lesion. There is absence of the uterus consistent with a prior hysterectomy. Normal visualized small intestine. Normal visualized colon. Normal visualized pelvic and femoral arteries. Normal abdominal wall. Normal visualized bilateral iliac wings, sacroiliac joints and visualized sacrum. Normal visualized bilateral superior and inferior pubic rami. Normal pubic symphysis. Normal ischial tuberosities. Normal visualized left femoral head. Normal left acetabulum. Normal left hip joint. There is degenerative subarticular sclerosis as well as degenerative periarticular spurring of the medial femoral condyle and medial tibial plateau. There is moderate narrowing of the articular joint space of the medial knee compartment. Moderate periarticular spurring of the lateral femoral condyle and lateral tibial plateau. There is preservation of the articular joint space of the lateral knee compartment. Normal proximal tibiofibular articulation. Unremarkable patella. There is preservation of the articular joint space of the patellofemoral knee compartment. There is a small joint effusion. The quadriceps tendon is grossly normal. The patellar tendon is grossly normal. Normal Hoffa''s fat pad. Normal visualized distal tibia and fibula. 5 mm well-corticated degenerative ossicle seen near the tip of the medial malleolus. Normal tibiotalar articulation and talar dome. There is borderline narrowing of the talonavicular joint space, as well as early subarticular sclerosis and early anterior periarticular spurring of the proximal navicular. There is early calcaneal spurring at the insertions of the Achilles tendon and plantar aponeurosis. Normal talus and cuboid tarsal bones. Normal subtalar and calcaneocuboid articulations. Normal visualized navicular-cuneiform, cuneiform tarsal bones and intercuneiform articulations. The soft tissues are unremarkable. There is no demonstrated osseous structures of lesion or acute fracture. CT/Extremity Lower without Contra IMPRESSION: 1. Degenerative arthrosis of the left knee with moderate narrowing and periarticular spurring in the medial femorotibial compartment. Very small joint effusion is also present. 2. Minimal degenerative changes of the left ankle, as noted. 3. The left hip is unremarkable. 4. Incidental note of prior hysterectomy. Electronically Signed: Juventino Antunez MD at 14:19 EDT , Service support ,
== END ==
PROVIDERS: PCP Preventive Medicine Occupational Medicine; Referring Provider Specialist; Visit Provider Specialist
DX: M21.162 Varus deformity, not elsewhere classified, left knee (principal)
CPT/HCPCS: 73700

== ENCOUNTER 2020-03-31 11:00 | Outpatient (RCR) | payer OTHER, SELFPAY ==
--- NOTE | 2020-03-19 13:03 | HP.PTEVAL_ITS ---
Patient's Visit Information OREN RIOS is a 60 year old F referred to Physical Therapy by Dr. Oleg Omer MD with a diagnosis of L knee pain, L unilateral OA pain. Date of Evaluation: 03/19/20 Physical Therapist: Dionisio Weber DPT - Visit Plan Frequency: 2-3x /Week Duration: 4-6 Weeks Plan: Start with BLE strengthening, ROM and core stability exercises in aquatic setting. Progress as able. - Subjective Pt. is here today for her initial evaluation with diagnosis of L knee pain. Pt. is awaiting a partial or possible a L TKA. Pt. reports having increased pain for years, but has become worse recently. Pt. has been through gel injections and coritzone injections with some relief, but have been progressively less helpful. Pt. reports increased pain with walking, standing and worst with stairs. She has increased pain with changing positions as well. She has difficulty sleeping as well. Pt. works at [employer] in [employer], which she has to stand most of the day. She has been off work due to virus pandemic. Pt. is hopeful to get back to work and have her knee replaced to decrease her symptoms. - Pain L knee Pain Intensity (Out of 10): 2 Pain Intensity Range: 0, 6 - Objective POSTURE: Pt. has increased lateral wt. shift to R side. Lacks terminal knee ext on L side. PALPATION: Pt. has mild tenderness to posterior medial aspect of L knee. Mild edema noted throughout. NEURO: Pt. has normal sensation throughout BLEs. Pt. has normal LLE DTR throughout. ROM: R knee (previous TKA)- 0-2-101deg. L knee- 0-10-91deg. Pt. has tight HS adn hip flexors bilaterally. MMT: RLE- 5/5 throughout. LLE- ankle 5/5 throughout; knee- ext 5-/5, flexxon 4+/5; hip- flexion 5-/5, abd 4+/5. Core strength fair-. GAIT: Pt. lack L TKE during stance phase, lack flexion durign swing phase. Pt. has icnreased R lateral lean with gait (antalgic). STAIRS: Pt. is able to complete, but has marked hip elevation during descending on LLE. Increased pain with L loading phase. - Goals Goal 1:: LTG: Pt. to be I with HEP. Goal Time Frame: 4-6 Weeks Goal 2:: STG: Pt. to sleep with 0-2/10 allowing for improved quality of life. Goal Time Frame: 2-4 Weeks Goal 3:: LTG: Pt. to have increased ROM to 0-0-100deg allowing for improved outcomes post surgical. Goal Time Frame: 4-6 Weeks Goal 4:: LTG: Pt. to have increased LLE strength by 1/2 grade throughout effected musculature. Goal Time Frame: 4-6 Weeks - Rehabilitation Potential Physical Therapy Diagnosis: Pt. has signs and symptoms consistent with L knee, with unilateral OA. Pt. has marked hypomobility and weakness with difficulty with gait and stair negotiation. Pt. would benefit from ROM and strengthening in aquatic setting to promote for better outcomes with L TKA. Rehabilitation Potential: Good - Anticipated Interventions Patient/Client Instruction: Educate patient on: Condition, Plan of Care, Risk Factors, Benefits of Fitness Program For the Purpose of:: To foster healthy habits, To improve decision making, To facilitate caregiver knowledge, To improve self management, To prevent re- injury, To improve ability to perform tasks related to life management, To improve tolerance to ADL's Therapeutic Exercise to Include: Strength training, Power training, Postural training, Flexibilty training, Gait and locomotor training, In an aquatic setting, Passive ROM, Active ROM, Dynamic Lumbar Stabilization For the Purpose of:: To decrease pain, To decrease swelling/inflammation, To increase ROM, To improve nutrient delivery to tissue, To increase oxygenation perfusion, To improve muscle performance and motor function, To improve ability to perform ADL's, To improve gait and locomotor functions, To improve health of tissue, To decrease soft tissue restriction, To increase flexibility/ROM, To improve endurance, To improve balance Thank you for the opportunity to evaluate your patient. For Medicare and Medicare HMO plans, please review the plan of care and approve it. It will need to be FAXED BACK to us at [phone] for Medicare purposes. For Medicare only, by signing this I certify the plan of care. Please let me know if there are questions or concerns regarding this plan of care. Physician Signature: Date:
== END 2020-03-31 19:00 | disposition home or self-care (01) ==
LOC: PT 11:00
PROVIDERS: PCP Preventive Medicine Occupational Medicine; Referring Provider Specialist; Visit Provider Specialist
DX: M17.12 Unilateral primary osteoarthritis, left knee (principal)
CPT/HCPCS: 97113; 97161

== ENCOUNTER 2020-06-02 16:00 | Outpatient (RCR) | payer OTHER, SELFPAY ==
[2018-09-04 16:34] VITALS: BMI 39.4
== END 2020-06-05 23:59 ==
LOC: NS 16:00
PROVIDERS: PCP Preventive Medicine Occupational Medicine; Visit Provider Specialist
DX: Z71.3 Dietary counseling and surveillance (principal); E66.8 Other obesity; Z68.42 Body mass index [BMI] 45.0-49.9, adult
CPT/HCPCS: 97803

== ENCOUNTER 2020-06-23 15:21 | Outpatient (RCR) | payer OTHER, SELFPAY ==
[2018-09-04 16:34] VITALS: BMI 39.4
== END 2020-07-06 23:59 ==
LOC: NS 15:21
PROVIDERS: PCP Preventive Medicine Occupational Medicine; Visit Provider Specialist
DX: Z71.3 Dietary counseling and surveillance (principal); E66.8 Other obesity; Z68.42 Body mass index [BMI] 45.0-49.9, adult
CPT/HCPCS: 97803

== ENCOUNTER 2020-07-27 15:00 | Outpatient (RCR) | payer OTHER, SELFPAY ==
[2018-09-04 16:34] VITALS: BMI 39.4
== END 2020-08-05 23:59 ==
LOC: NS 15:00
PROVIDERS: PCP Preventive Medicine Occupational Medicine; Visit Provider Specialist
DX: Z71.3 Dietary counseling and surveillance (principal); E66.8 Other obesity; Z68.42 Body mass index [BMI] 45.0-49.9, adult
CPT/HCPCS: 97803

== ENCOUNTER 2020-08-17 15:21 | Outpatient (RCR) | payer OTHER, SELFPAY ==
[2018-09-04 16:34] VITALS: BMI 39.4
== END 2020-09-05 23:59 ==
LOC: NS 15:21
PROVIDERS: PCP Preventive Medicine Occupational Medicine; Visit Provider Specialist
DX: Z71.3 Dietary counseling and surveillance (principal); E66.8 Other obesity; Z68.42 Body mass index [BMI] 45.0-49.9, adult
CPT/HCPCS: 97803

== ENCOUNTER 2020-09-15 15:42 | Outpatient (RCR) | payer OTHER, SELFPAY ==
[2018-09-04 16:34] VITALS: BMI 39.4
== END 2020-09-15 23:59 | disposition home or self-care (01) ==
LOC: NS 15:42
PROVIDERS: PCP Preventive Medicine Occupational Medicine; Visit Provider Specialist
DX: Z71.3 Dietary counseling and surveillance (principal); E66.8 Other obesity; Z68.42 Body mass index [BMI] 45.0-49.9, adult
CPT/HCPCS: 97803

== ENCOUNTER → 2021-02-02 13:09 | Outpatient (CLI) | payer OTHER, SELFPAY ==
--- NOTE | 2021-02-02 13:45 | MRI_ITS ---
STUDY: MRI LEFT ANKLE WITHOUT CONTRAST REASON FOR EXAM: Left ankle pain and swelling for 4 months, evaluate for peroneal tendinitis/tear. TECHNIQUE: Standardized fat and water weighted pulse sequences were obtained in all 3 orthogonal planes. COMPARISON: MRI images 04/06/2018 and radiographs 05/11/2018. FINDINGS: Normal subcutis adipose space. There is a very small volume of fluid in the retromalleolar posterior tibialis tendon sheath (T2 axial images 10, 11). The posterior tibialis tendon is morphologically normal. Normal flexor digitorum longus tendon. Normal flexor hallucis longus tendon. There is fluid in the retromalleolar and submalleolar peroneal tendon sheath (inversion recovery sagittal images 17-19). There is a longitudinal split of the perimalleolar peroneus brevis tendon (T1 axial images 16-19). The peroneus longus tendon is morphologically normal. Normal tibialis anterior tendon. Normal extensor hallucis longus tendon. Normal extensor digitorum longus tendons. Normal Achilles tendon and teno-osseous insertion. Normal plantar fascia. There is a plantar calcaneal enthesophyte. Normal intrinsic muscles of the rearfoot. Normal distal tibiofibular syndesmotic ligamentous complex. Normal lateral ligamentous complex. Normal subtalar ligaments and sinus tarsi. Normal deltoid ligamentous complexes. Normal plantar calcaneonavicular (spring) ligament. There is a small osteochondral lesion of the medial aspect of the superior talar dome with bone edema of the fragment (inversion recovery sagittal image 8; T2 coronal image 15) measuring 0.6 x 0.3 cm (AP x transverse). Normal subtalar articulations. Normal talonavicular articulation. Normal calcaneocuboid articulation. Normal navicular-cuneiform articulations. There is arthrosis of the second tarsometatarsal articulation with chondral thinning and subchondral cystic change/mild bone edema of the middle cuneiform (inversion recovery sagittal images 10, 11). There is arthrosis of the fourth and fifth tarsometatarsal articulations with chondral thinning and mild subchondral cystic change/bone edema (inversion recovery sagittal images 15-18). MRI/Lower Ext Joint Only (Routine) IMPRESSION: Longitudinal split of the peroneus brevis tendon and peroneal tenosynovitis. Small osteochondral lesion of the medial talar dome. Very mild posterior tibialis tenosynovitis. Arthrosis of the second, fourth and fifth tarsometatarsal articulations. Electronically Signed: José Miguel Blanco MD at 13:47 EDT Tel , Service support ,
== END ==
PROVIDERS: PCP Preventive Medicine Occupational Medicine; Referring Provider Podiatrist; Visit Provider Podiatrist
DX: M76.72 Peroneal tendinitis, left leg (principal); S96.812A Strain of other specified muscles and tendons at ankle and foot level, left foot, initial encounter
CPT/HCPCS: 73721

== ENCOUNTER → 2023-11-20 | Outpatient (CLI) | payer OTHER, SELFPAY ==
--- NOTE | 2023-11-20 10:18 | MRI_ITS ---
EXAM: MR LUMBAR SPINE WITHOUT INTRAVENOUS CONTRAST CLINICAL INDICATION: DDD,STENOSIS TECHNIQUE: Multiplanar and multisequence MR images of the lumbar spine without intravenous contrast. COMPARISON: No relevant prior studies available. FINDINGS: VERTEBRAE: Alignment of lumbar vertebral bodies is normal. Normal vertebral body height. SPINAL CORD: Normal. Normal position and signal intensity of the conus medullaris. SOFT TISSUES: Normal. DISCS/SPINAL CANAL/NEURAL FORAMINA: L1-L2: Prominent disc space narrowing mild disc bulging and bony hypertrophy and mild facet arthropathy. No spinal or neural foraminal stenosis. L2-L3: Moderate disc space narrowing with Modic type II endplate changes. No disc herniation. Mild facet arthropathy and ligamentous hypertrophy resulting in mild to moderate left neural foraminal narrowing. No spinal stenosis. Normal right neural foramen. L3-L4: Mild disc space narrowing. No disc protrusion. Ligamentous hypertrophy and facet arthropathy cause mild narrowing of the left neural foramen. Normal spinal canal and right neural foramen. L4-L5: No disc space narrowing or herniation. Facet arthropathy. Normal spinal canal and lateral recesses. Normal neuroforamina. L5-S1: Mild facet arthropathy. Mild right posterior lateral disc protrusion and facet arthropathy results in mild narrowing of the right neural foramen. Normal caliber spinal canal and left neural foramen. MRI/Spine Lumbar (Routine) IMPRESSION: Multilevel disc degeneration without significant spinal stenosis. Neural foraminal narrowing as described. Electronically Signed: Igor Dillon MD at 16:53 EST ,
--- OUTSIDE RECORDS SUMMARY | 2023-11-20 14:47 | XMS RPT_ITS | CCD ---
Author Name Unknown Address [id number] [place] [address] Organization [facility] Care Team Providers Care Caustics Loader Name Role Phone Constanza Flower Primary Care Provider CONSTANZA FLOWER DO Primary Care Physician CONSTANZA FLOWER DO Primary Care Physician Constanza Flower DO Primary Care Provider RASHIDA PIERRE Attending Unavailable CONSTANZA FLOWER Primary Care Unavailable CONSTANZA FLOWER DO Primary Care Unavailable EDGARDO BARR MD Attending Unavail able EDGRADO BARR MD Attending Unavail able CONSTANZA FLOWER DO Primary Care Unavailable CONSTANZA FLOWER DO Primary Care Unavailable CONSTANZA FLOWER DO Attending Unavailable CONSTANZA FLOWER DO Primary Care Unavailable EDGARDO BARR MD Attending Unavail CONSTANZA Hutchins DO Primary Care Unavailable CONSTANZA FLOWER DO Attending Unavailable EDGARDO BARR MD Attending Unavail CONSTANZA Hutchins DO Primary Care Unavailable Medications Current Medications Medication Drug Class(es) Dates Sig (Normalized) Sig (Original) amitriptyline hydrochloride 10 mg oral tablet (3 sources) Tricyclic Antidepressant Start: 3 take 1-5 tablets by mouth once daily at bedtime amitriptyline 10 mg oral tablet 1 to 5 tab(s), Oral, qHS, # 40 tab(s), 0 Refill(s), Pharmacy: [facility]/pharmacy #[id number], Right lumbar radiculopathy, 158.5, cm, 12/06/22 14:04:00 EST, Height Start Date: 12/06/22 Status: Ordered bisoprolol fumarate 5 mg / hydroCHLOROthiazide 6.25 mg oral tablet (16 sources) Thiazide Diuretic, beta-Adrenergic Jorge Luis Start: 3 take 1 tablet by mouth once daily in the evening bisoprolol-hydroc hlorothiazide 5 - 6.25 mg oral tablet Dose = 1 tab(s), Oral, qPM, # 90 tab(s), 3 Refill(s), Pharmacy: [facility], Essential hypertension, 162.6, cm, 11/24/22 7:33:00 EST, Height, kg, 11/24/22 7:33:00 EST, Dosing Weight Start Date: 12/02/22 Status: Ordered Completed/Discontinued Medications Medication Drug Class(es) Dates Sig (Normalized) Sig (Original) acetaminophen 325 mg / oxyCODONE hydrochloride 5 mg oral tablet (1 source) Opioid Agonist take 1 tablet by moisés th every twelve hours as needed oxyCODONE-acetamino phen (PERCOCET) 5-325 mg tablet Take 1 tablet by mouth twice daily as needed for Pain (knee pain). 0 Active Problems Active Problems Problem Classification Problem Date Documented Da te Episodic/Chronic Essential hypertension (16 sources) Essential hypertension; Translations: [Essential (primary) hypertension] 10-12-2020 Chronic Osteoarthritis (20 sources) Arthritis; Translations: [Osteoarthritis of left knee joint] Onset: 11-21-2016 06-06-2019 Chronic Other connective tissue disease (19 sources) Fibromyalgia; Translations: [Fibromyalgia] Onset: 05-05-2022 06-07-2019 Episodic Other connective tissue disease (5 sources) Thigh pain; Translations: [Pain in right thigh] 11-12-2021 Episodic Other female genital disorders (1 source) Endometrial hyperplasia; Translations: [Endometrial hyperplasia] Onset: 06-15-2016 06-15-2016 Chronic Other gastrointestinal disorders (1 source) Stool DNA-based colorectal cancer screening positive; Translations: [Other fecal abnormalities] 10-03-2023 Episodic Other non-traumatic joint disorders (15 sources) Multiple joint pain 02-17-2021 Episodic Other non-traumatic joint disorders (2 sources) Joint pain; Translations: [Pain in unspecified joint] Onset: 05-05-2022 Episodic Other nutritional; endocrine; and metabolic disorders (16 sources) Body mass index 40+ - severely obese; Translations: [Morbid (severe) obesity due to excess calories] Onset: 11-21-2016 03-22-2021 Chronic Other nutritional; endocrine; and metabolic disorders (3 sources) Morbid obesity; Translations: [Morbid (severe) obesity due to excess calories] Onset: 05-05-2022 Chronic Other screening for suspected conditions (not mental disorders or infectious disease) (9 sources) Radiology result abnormal 01-05-2022 Chronic Spondylosis; intervertebral disc disorders; other back problems (20 sources) Degeneration of lumbar intervertebral disc; Translations: [Other intervertebral disc degeneration, lumbar region] Onset: 06-22-2022 12-24-2021 Chronic Spondylosis; intervertebral disc disorders; other back problems (20 sources) Lumbar radiculopathy; Translations: [Spinal stenosis of lumbar region] Onset: 05-05-2022 12-24-2021 Episodic Thyroid disorders (16 sources) Hypothyroidism; Translations: [Hypothyroidism, unspecified] 03-22-2021 Chronic Unclassified (1 source) Tendinitis of shoulder region 12-16-2022 Past or Other Problems Problem Classification Problem Date Documented Da te Episodic/Chronic Other non-traumatic joint disorders (1 source) Pain in right knee; Translations: [Pain in joint, lower leg] Onset: 11-21-2016 11-21-2016 Episodic Results Test Name Value Interpretation Reference Range Facil ity Vital Signs Date Time Vital Sign Value Performing Clinician Facility 10-03-2023 14:34-0500 Body height 162.6 cm Rashida Pierre MD Work Phone: [facility] 10-03-2023 14:34-0500 Body temperature 98.01 [degF] Rashida Pierre MD Work Phone: [facility] 10-03-2023 14:34-0500 Body weight 119.57 kg Rashida Pierre MD Work Phone: [facility] 10-03-2023 14:34-0500 Diastolic blood pressure 72 mm[Hg] Rashida Pierre MD Work Phone: [facility] 10-03-2023 14:34-0500 Heart rate 83 /min Rashida Pierre MD Work Phone: [facility] 10-03-2023 14:34-0500 SaO2% (BldA) [Mass fraction] 99 % Rashida Pierre MD Work Phone: [facility] 10-03-2023 14:34-0500 Systolic blood pressure 134 mm[Hg] Rashida Pierre MD Work Phone: [facility] 11-24-2022 08:24-0500 Diastolic Blood Pressure Non-Invasive 68 1 EDGARDO BARR MD [facility] 11-24-2022 08:24-0500 Heart rate 56 /min EDGARDO BARR MD [facility] 11-24-2022 08:24-0500 Respiratory rate 17 /min EDGARDO BARR MD [facility] 11-24-2022 08:24-0500 Systolic Blood Pressure Non-Invasive 148 1 EDGARDO BARR MD [facility] 11-24-2022 08:09-0500 Diastolic Blood Pressure Non-Invasive 72 1 EDGARDO BARR MD [facility] 11-24-2022 08:09-0500 Heart rate 54 /min EDGARDO BARR MD [facility] 11-24-2022 08:09-0500 Respiratory rate 14 /min EDGARDO BARR MD [facility] 11-24-2022 08:09-0500 Systolic Blood Pressure Non-Invasive 148 1 EDGARDO BARR MD [facility] 11-24-2022 07:58-0500 Diastolic Blood Pressure Non-Invasive 89 1 EDGARDO BARR MD [facility] 11-24-2022 07:58-0500 Heart rate 57 /min EDGARDO BARR MD [facility] 11-24-2022 07:58-0500 Respiratory rate 16 /min EDGARDO BARR MD [facility] 11-24-2022 07:58-0500 Systolic Blood Pressure Non-Invasive 181 1 EDGARDO BARR MD [facility] 11-24-2022 07:33-0500 Blood Pressure Location EDGARDO BARR MD [facility] 11-24-2022 07:33-0500 Blood Pressure Method EDGARDO BARR MD [facility] 11-24-2022 07:33-0500 Body height 162.6 cm EDGARDO BARR MD [facility] 11-24-2022 07:33-0500 Body weight 120.8 kg EDGARDO BARR MD [facility] 11-24-2022 07:33-0500 Body weight 45.69 kg/m2 EDGARDO BARR MD [facility] 11-24-2022 07:33-0500 Heart rate 61 /min EDGARDO BARR MD [facility] 08-10-2022 09:32-0400 Diastolic Blood Pressure NBP 80 1 SIOBHAN PENDLETON APRON TRIMMER-CHERRY SORTER [facility] 08-10-2022 09:32-0400 Heart rate 57 /min SIOBHAN PENDLETON APRON TRIMMER-CHERRY SORTER [facility] 08-10-2022 09:32-0400 Respiratory rate 14 /min SIOBHAN PENDLETON APRON TRIMMER-CHERRY SORTER [facility] 08-10-2022 09:32-0400 Systolic Blood Pressure NBP 154 1 SIOBHAN PENDLETON APRON TRIMMER-CHERRY SORTER [facility] 08-10-2022 09:12-0400 Diastolic Blood Pressure NBP 93 1 SIOBHAN PENDLETON APRON TRIMMER-CHERRY SORTER [facility] 08-10-2022 09:12-0400 Heart rate 56 /min SIOBHAN PENDLETON APRON TRIMMER-CHERRY SORTER [facility] 08-10-2022 09:12-0400 Respiratory rate 17 /min SIOBHAN RINCONTT APRON TRIMMER-CHERRY SORTER [facility] 08-10-2022 09:12-0400 Systolic Blood Pressure NBP 133 1 SIOBHAN RINCONTT APRON TRIMMER-CHERRY SORTER [facility] 08-10-2022 09:11-0400 diastolic 82 mm[Hg] SIOBHAN PENDLETON APRON TRIMMER-CHERRY SORTER [facility] 08-10-2022 09:11-0400 Heart rate 58 /min SIOBHAN PENDLETON APRON TRIMMER-CHERRY SORTER [facility] 08-10-2022 09:11-0400 Respiratory rate 18 /min SIOBHAN PENDLETON APRON TRIMMER-CHERRY SORTER [facility] 08-10-2022 09:11-0400 systolic 140 mm[Hg] SIOBHAN PENDLETON APRON TRIMMER-CHERRY SORTER [facility] 08-10-2022 09:06-0400 diastolic 70 mm[Hg] SIOBHAN PENDLETON APRON TRIMMER-CHERRY SORTER [facility] 08-10-2022 09:06-0400 systolic 132 mm[Hg] SIOBHAN PENDLETON APRON TRIMMER-CHERRY SORTER [facility] 08-10-2022 09:01-0400 diastolic 90 mm[Hg] SIOBHAN PENDLETON APRON TRIMMER-CHERRY SORTER [facility] 08-10-2022 09:01-0400 systolic 170 mm[Hg] SIOBHAN PENDLETON APRON TRIMMER-CHERRY SORTER [facility] 08-10-2022 08:26-0400 Body height 162.6 cm SIOBHAN PENDLETON APRON TRIMMER-CHERRY SORTER [facility] 08-10-2022 08:26-0400 Body weight 117.5 kg SIOBHAN PENDLETON APRON TRIMMER-CHERRY SORTER [facility] 08-10-2022 08:26-0400 Body weight 44.44 kg/m2 SIOBHAN PENDLETON APRON TRIMMER-CHERRY SORTER [facility] 06-22-2022 08:53-0400 Diastolic Blood Pressure NBP 60 1 SIOBHAN PENDLETON APRON TRIMMER-CHERRY SORTER [facility] 06-22-2022 08:53-0400 Heart rate 59 /min SIOBHAN PENDLETON APRON TRIMMER-CHERRY SORTER [facility] 06-22-2022 08:53-0400 Respiratory rate 16 /min SIOBHAN PENDLETON APRON TRIMMER-CHERRY SORTER [facility] 06-22-2022 08:53-0400 Systolic Blood Pressure NBP 151 1 SIOBHAN PENDLETON APRON TRIMMER-CHERRY SORTER [facility] 06-22-2022 08:37-0400 Diastolic Blood Pressure NBP 60 1 SIOBHAN PENDLETON APRON TRIMMER-CHERRY SORTER [facility] 06-22-2022 08:37-0400 Heart rate 55 /min SIOBHAN RINCONTT APRON TRIMMER-CHERRY SORTER [facility] 06-22-2022 08:37-0400 Respiratory rate 17 /min SIOBHAN PENDLETON APRON TRIMMER-CHERRY SORTER [facility] 06-22-2022 08:37-0400 Systolic Blood Pressure NBP 160 1 SIOBHAN PENDLETON APRON TRIMMER-CHERRY SORTER [facility] 06-22-2022 08:23-0400 Diastolic Blood Pressure NBP 76 1 SIOBHAN PENDLETON APRON TRIMMER-CHERRY SORTER [facility] 06-22-2022 08:23-0400 Heart rate 66 /min SIOBHAN PENDLETON APRON TRIMMER-CHERRY SORTER [facility] 06-22-2022 08:23-0400 Respiratory rate 16 /min SIOBHAN KEERTHI APRON TRIMMER-CHERRY SORTER [facility] 06-22-2022 08:23-0400 Systolic Blood Pressure NBP 184 1 SIOBHAN PENDLETON APRON TRIMMER-CHERRY SORTER [facility] 06-22-2022 08:06-0400 Body height 162 cm SIOBHAN KEERTHI APRON TRIMMER-CHERRY SORTER [facility] 06-22-2022 08:06-0400 Body weight 115 kg SIOBHAN KEERTHI APRON TRIMMER-CHERRY SORTER [facility] 06-22-2022 08:06-0400 Body weight 43.82 kg/m2 SIOBHAN PENDLETON APRON TRIMMER-CHERRY SORTER [facility] 06-22-2022 08:06-0400 diastolic 84 mm[Hg] SIOBHAN PENDLETON APRON TRIMMER-CHERRY SORTER [facility] 06-22-2022 08:06-0400 Heart rate 64 /min SIOBHAN PENDLETON APRON TRIMMER-CHERRY SORTER [facility] 06-22-2022 08:06-0400 systolic 163 mm[Hg] SIOBHAN PENDLETON APRON TRIMMER-CHERRY SORTER [facility] 05-05-2022 08:05-0400 Diastolic Blood Pressure NBP 77 1 EDGARDO BARR MD [facility] 05-05-2022 08:05-0400 Heart rate 69 /min EDGARDO BARR MD [facility] 05-05-2022 08:05-0400 Respiratory rate 17 /min EDGARDO BARR MD [facility] 05-05-2022 08:05-0400 Systolic Blood Pressure NBP 144 1 EDGARDO BARR MD [facility] 05-05-2022 07:52-0400 Diastolic Blood Pressure NBP 67 1 EDGARDO BARR MD [facility] 05-05-2022 07:52-0400 Heart rate 72 /min EDGARDO BARR MD [facility] 05-05-2022 07:52-0400 Reason For Taking VItal Signs EDGARDO BARR MD [facility] 05-05-2022 07:52-0400 Respiratory rate 12 /min EDGARDO BARR MD [facility] 05-05-2022 07:52-0400 Systolic Blood Pressure NBP 135 1 EDGARDO BARR MD [facility] 05-05-2022 07:45-0400 diastolic 72 mm[Hg] EDGARDO BARR MD [facility] 05-05-2022 07:45-0400 Heart rate 76 /min EDGARDO BARR MD [facility] 05-05-2022 07:45-0400 Respiratory rate 17 /min EDGARDO BARR MD [facility] 05-05-2022 07:45-0400 systolic 165 mm[Hg] EDGARDO BARR MD [facility] 05-05-2022 07:00-0400 Body height 162.6 cm EDGARDO BARR MD [facility] 05-05-2022 07:00-0400 Body weight 116.6 kg EDGARDO BARR MD [facility] 05-05-2022 07:00-0400 Body weight 44.1 kg/m2 EDGARDO BARR MD [facility] 05-05-2022 07:00-0400 diastolic 99 mm[Hg] EDGARDO BARR MD [facility] 05-05-2022 07:00-0400 Heart rate 77 /min EDGARDO BARR MD [facility] 05-05-2022 07:00-0400 systolic 142 mm[Hg] EDGARDO BARR MD [facility] Encounters Encounter Date Encounter Type Care Provider Facility Start: 11-07-2023 ambulatory CONSTANZA Rivas ity:B Start: 10-03-2023 End: 10-03-2023 ambulatory RASHIDA PIERRE Facility:[facility] Start: 10-03-2023 End: 10-03-2023 Patient encounter procedure Rashida Pierre MD Work Phone: General Surgery Procedures Date Procedure Procedure Detail Performing Clinician Start: 11-24-2022 PM Inj Spine L/S [facility] SN 1 EDGARDO BARR MD Plan of Treatment Date Care Activity Detail Author Start: 07-07-2023 [facility] Start: 11-06-2022 Depression Assessment Depression Assessment [facility] Start: 07-07-2019 Influenza vaccination Flu vaccine (#1) [place] Start: 2019 RSV Vaccine (1 - 1-dose 60+ series) RSV Vaccine (1 - 1-dose 60+ series) [facility] Start: 2009 Breast cancer screen Breast cancer screen [place], [place] Start: 2009 Colon cancer screen colonoscopy Colon cancer screen colonoscopy [place] Start: 2009 Shingles Vaccine (1 of 2) Shingles Vaccine (1 of 2) [place] Start: 2009 Shingrix Vaccine (1 of 2) Shingrix Vaccine (1 of 2) [facility] Start: 2004 Cologuard (FIT-DNA) Cologuard (FIT-DNA) [facility] Start: 2004 Colonoscopy Colonoscopy [facility] Start: 2004 Colorectal Cancer Screening Colorectal Cancer Screening [facility] Start: [address] Colonography [facility] Start: 2004 Diabetes Screening Diabetes Screening [facility] Start: 2004 Fecal Occult Blood Fecal Occult Blood [facility] Start: 2004 Lipid 1996 panel - Serum or Plasma Lipid Screening [facility] Start: 2004 Sigmoidoscopy Sigmoidoscopy [facility] Start: 1999 Lipid screen Lipid screen [place], [place] Start: 1999 Mammography Mammogram Screening [facility] Start: 1989 HPV Testing HPV Testing [facility] Start: 1980 Cervical cancer screen Cervical cancer screen [place], [place] Start: 1980 Pap Testing Pap Testing [facility] Start: 1978 DTaP/Tdap/Td vaccine (1 - Tdap) DTaP/Tdap/Td vaccine (1 - Tdap) [place] Start: 1978 Urine microalbumin profile DTaP,Tdap,Td Vaccine (1 - Tdap) [facility] Start: 1977 Hepatitis C Screening Hepatitis C Screening [facility] Start: 1977 HIV Screening HIV Screening [facility] Start: 1974 HIV screen HIV screen [place], [place] Start: 1959 Covid-19 Vaccine (#1) Covid-19 Vaccine (#1) [facility] Start: 1959 Hepatitis C screen Hepatitis C screen [place], [place] End: 10-03-2024 COLONOSCOPY DIAGNOSTIC COLONOSCOPY DIAGNOSTIC Endoscopy Routine Positive colorectal cancer screening using Cologuard test 1 Occurrences starting 10/03/2023 until 10/03/2024 [facility] Work Phone: Payers Date Payer Category Payer Unknown MMO MMO [employer] PPO [id number] 2019-Present [phone] [address] [place] [address] PPO [id number] 2019 Unknown [id number] 2015 Unknown [employer] M [employer] [address] xxxxxxxxxxxx 2015-Present [phone] [address] [place] [address] xxxxxxxxxxxx [id number] 1959 Unknown [id number] 1959 Unknown [id number] 1959 Unknown [id number] 1959 Unknown [id number] 1959 Unknown [id number] 1959 Unknown [id number] Social History Date Type Detail Facility Start: 06-29-2016 End: 10-03-2023 Tobacco smoking status NHIS Never smoker [place], [place] Start: 1960 Sex Assigned At Not on file M [place], [place] Sex Assigned At Female [facility] Start: 10-03-2023 Tobacco use and exposure Smokeless tobacco non-user [facility] Start: 10-03-2023 Alcohol intake Current non-dr electronic commerce specialist of alcohol (finding) [facility] Start: 10-03-2023 History of Social function [facility] Start: 10-03-2023 Tobacco use panel [facility] Functional Status Date Assessment Result Facility 11-24-2022 Functional Status Maintained [facility] 08-10-2022 Functional Status Maintained, More than 8 hours [facility] 06-22-2022 Functional Status Maintained [facility] 05-05-2022 Functional Status Maintained [facility] Mental Status Date Assessment Result Facility 11-24-2022 Mental Status Oriented x 4 [facility] 08-10-2022 Mental Status Orientation Oriented x 4 [facility] 06-22-2022 Mental Status Orientation Oriented x 4 [facility] Clinical Notes 05-05-2022 to 10-03-2023 Melanie Doyle RN - 10/03/2023 3:22 PM ESTPatient Rashida River MD - 10/03/2023 2:39 PM E[facility]iology[facility]iologyLaboratoryRadiologyLaboratoryRadiologyLaboratoryRadiologyLa boratory Note Date & Type Note Facility 10-03-2023 Note HNO ID: [id number] Author: Rashida Pierre MD Service: ? Author Type: Physician Type: Progress Notes Filed: 10/07/2023 10:11 AM Note Text: HISTORY AND PHYSICAL Oren Carrasco 1960 REFERRING PHYSICIAN: No ref. provider found CHIEF COMPLAINT: Consult (Positive Cologuard ) HPI: The patient is a 63 year old female referred for endoscopy. Oren is found to be Cologard positive. The patient denies blood in stools, denies abdominal pain, and denies changes in bowel habits. She notes increased abdominal gas. She has constipation - no bowel movement for up to two days, but she does not feel uncomfortable with this. The patient notes no colon cancer in immediate family. The patient has not had previous colonoscopy. She is not taking percocet or tramadol. She has stable hypertension PAST MEDICAL HISTORY Diagnosis Date Arthritis Cervical spondylosis DDD (degenerative disc disease), lumbar Essential hypertension Fibromyalgia Hypothyroidism Insomnia Lumbar stenosis Morbid obesity (HCC) Osteoarthritis of multiple joints Positive colorectal cancer screening using Cologuard test Tendinitis of left shoulder PAST SURGICAL HISTORY Procedure Laterality Date DELIVERY ONLY NEUROPLASTY AND/TRANSPOS MEDIAN NRV CARPAL TUNNE Right 2000 Carpal tunnel decomp OPEN REPAIR OF ROTATOR CUFF ACUTE Bilateral 2012 and 2014 Rotator cuff repair, and right shoulder x 2 PAST SURGICAL HISTORY OF Bilateral 04/13/2016 bilateral knee arthroscopy by Dr. Coel 2015 and right in 1995 PAST SURGICAL HISTORY OF Left 2012 plantar fascia release PAST SURGICAL HISTORY OF Left 2018 left foot-cyst excision and repair of torn ligament. TOTAL KNEE REPLACEMENT Right 2017 UNLISTED PROC, POLYETHYLENE EXCHANGE FOR A PARTIAL K[place]EE [place]PL[place] ([place] [address]) Left 2019 VAGINAL HYSTERECTOMY UTERUS 250 GM/< 06/2016 Hysterectomy, vaginal with ovaries removed Current Outpatient Medications Medication Sig bisoprolol-hydroCHLOROthiazide (ZIAC) 5-6.25 mg per tablet Take 1 tablet by mouth once daily. DULoxetine (CYMBALTA) 60 mg capsule Take 60 mg by mouth once daily. melatonin 10 mg tab Take 10 mg by mouth daily at bedtime. celecoxib (CELEBREX) 200 mg capsule Take 200 mg by mouth twice daily. Pregabalin (LYRICA) 200 mg capsule Take 200 mg by mouth three times a day. LEVOTHYROXINE SODIUM (LEVOTHROID ORAL) Take 75 mcg by mouth once daily. Except only takes 1/2 tab Sun and Thurs oxyCODONE-acetaminophen (PERCOCET) 5-325 mg tablet Take 1 tablet by mouth twice daily as needed for Pain (knee pain). (Patient not taking: Reported on 10/03/2023) traMADol (ULTRAM) 50 mg tablet Take 1 tablet by mouth twice daily as needed for Pain. (Patient not taking: Reported on 10/03/2023) No current facility-administered medications for this visit. ALLERGIES: Patient has no known allergies. PERSONAL HISTORY: Social History Tobacco Use Smoking status: Never Smokeless tobacco: Never Substance Use Topics Alcohol use: No Drug use: No FAMILY HISTORY Problem Relation Age of Onset Alzheimer's Disease Mother Hypertension Mother Heart disease Father The review of systems data was entered by the nurse and reviewed by ut Nursing Notes: Melanie Doyle RN 10/03/2023 3:23 PM Signed REVIEW OF SYSTEMS: General: The patient denies fatigue, denies weight loss, NOTES weight gain, denies feeling hot, and denies feelings of cold. Eyes: The patient denies glaucoma, denies eye injury/surgery, does not wear glasses or contacts. Ear/Nose/Throat: The patient denies allergies, denies hayfever, denies ear infections, and denies bloody noses. Cardiovascular: The patient denies chest pain, denies heart disease, NOTES high blood pressure,denies cardiac stent, denies prior heart attack, denies irregular heart beat, denies high cholesterol, denies poor circulation, denies heart failure, other cardiac issues, NOTES claudication, denies cold feet, denies peripheral arterial stent. Respiratory: The patient denies tuberculosis, denies pneumonia, denies frequent cough, denies pulmonary embolism, denies shortness of breath, and denies coughing up blood. Gastrointestinal: The patient denies difficulty swallowing, denies acid reflux, denies ulcers, denies vomiting, denies jaundice/hepatitis, denies gallbladder problems, denies black or tarry stools, denies hemorrhoids, denies bleeding from rectum, denies diverticulitis, NOTES constipation, denies diarrhea, denies loss of stool control, and denies hernias. Kidney/Bladder: The patient denies kidney stones, denies urine infections, and denies bloody urine. Skin: The patient denies a history of skin cancer, denies bleeding/changing moles, and denies a history of skin rash. Neurologic: The patient denies a history of epilepsy/convulsions, denies headaches, denies head/spinal injuries, and denies stroke/TIA. Psychiatric: The patient denies psychia (more content not included)... [facility] 10-03-2023 Nurse Note REVIEW OF SYSTEMS: General: The patient denies fatigue, denies weight loss, NOTES weight gain, denies feeling hot, and denies feelings of cold. Eyes: The patient denies glaucoma, denies eye injury/surgery, does not wear glasses or contacts. Ear/Nose/Throat: The patient denies allergies, denies hayfever, denies ear infections, and denies bloody noses. Cardiovascular: The patient denies chest pain, denies heart disease, NOTES high blood pressure,denies cardiac stent, denies prior heart attack, denies irregular heart beat, denies high cholesterol, denies poor circulation, denies heart failure, other cardiac issues, NOTES claudication, denies cold feet, denies peripheral arterial stent. Respiratory: The patient denies tuberculosis, denies pneumonia, denies frequent cough, denies pulmonary embolism, denies shortness of breath, and denies coughing up blood. Gastrointestinal: The patient denies difficulty swallowing, denies acid reflux, denies ulcers, denies vomiting, denies jaundice/hepatitis, denies gallbladder problems, denies black or tarry stools, denies hemorrhoids, denies bleeding from rectum, denies diverticulitis, NOTES constipation, denies diarrhea, denies loss of stool control, and denies hernias. Kidney/Bladder: The patient denies kidney stones, denies urine infections, and denies bloody urine. Skin: The patient denies a history of skin cancer, denies bleeding/changing moles, and denies a history of skin rash. Neurologic: The patient denies a history of epilepsy/convulsions, denies headaches, denies head/spinal injuries, and denies stroke/TIA. Psychiatric: The patient denies psychiatric medications, denies depression, and denies voices, denies substance abuse. Endocrine: The patient NOTES thyroid disorders, denies diabetes, and denies hormonal problems. Hematologic: The patient denies a history of bruising, denies bleeding, and denies anemia, denies blood clots. Infections: The patient denies a history of measles and mumps, denies rheumatic fever, and denies sexually transmitted diseases. Musculoskeletal: The patient denies back pain/injury, NOTES back problems, NOTES sciatica, NOTES knee/foot trouble, NOTES arthritis, or denies gout. When was patient's last Mammogram screening? Unknown Last Colonoscopy: None, positive Cologuard Melanie Doyle RN documented in this encounter [facility] 10-03-2023 Instructions Rashida Pierre MD - 10/03/2023 2:41 PM EST Images from the original note were not included. Bowel Preparation Instructions for: Golytely, Nulytely, Trilyte or Colyte (polyethylene glycol 3350 and electrolytes) IF YOU DO NOT FOLLOW THESE DIRECTIONS, YOUR COLONOSCOPY WILL BE CANCELLED. Mei Instructions: Your bowel must be empty so that your doctor can clearly view your colon. Follow all of the instructions in this handout EXACTLY as they are written. Do NOT eat any solid food the ENTIRE day before your colonoscopy. Drink only clear liquids. Buy your bowel preparation at least 5 days before your colonoscopy. TRANSPORTATION on the Day of Your Exam A responsible person MUST be present with you at Check In prior to your colonoscopy and REMAIN in the endoscopy area until you are discharged. You are NOT ALLOWED to drive, take a taxi or bus, or leave the Endoscopy Center ALONE. If you do not have a responsible industrial tractor driver (family member or friend) with you to take you home, your exam cannot be done with sedation and will be cancelled. Please bring a list of all of your current medications, including any Over-the Counter medications with you. Medications If you take insulin, diabetic medications or blood thinners such as Coumadin (warfarin), Plavix (clopidogrel), Ticlid (ticlopidine hydrochloride), Agrylin (anagrelide), Xarelto (Rivaroxaban), Pradaxa (Dabigatran), Eliquis (Apixaban), and Effient (Prasugrel). You MUST call the doctors who orders those medicines for instructions on altering the dosage before your colonoscopy. All other medications should be taken the day of the exam with a sip of water including ASPIRIN. Five (5) Days Before Your Colonoscopy Do NOT take medicines that stop diarrhea - such as Imodium, Kaopectate, or Pepto Bismol. Do NOT take fiber supplements - such as Metamucil, Citrucel, or Perdiem. Do NOT take products that contain iron - such as multi-vitamins (the label lists what is in the products). Do NOT take Vitamin E. Buy the prescription bowel preparation solution at your local pharmacy or drugstore pharmacy. 10/2019 Bowel Preparation Instructions for: Golytely, Nulytely, Trilyte or Colyte (polyethylene glycol 3350 and electrolytes) Three (3) Days Before Your Colonoscopy Do NOT eat high-fiber foods - such as popcorn, beans, seeds (flax, sunflower, quinoa), multigrain bread, nuts, salad/vegetables, or fresh and dried fruit. One (1) Day Before Your Colonoscopy Only drink clear liquids the ENTIRE DAY before your colonoscopy. Do NOT eat any solid foods. Drink at least 8 ounces of clear liquids every hour after waking up. The clear liquids you can drink include: Clear Liquid (NO RED LIQUIDS) DO NOT DRINK Gatorade, Pedialyte or Powerade Clear broth or bouillon Coffee or tea (no milk or non-dairy creamer) Carbonated and non-carbonated soft drinks Andrew-Aid or other fruit flavored drinks Strained fruit juices (no pulp) Jell-O, popsicles, hard candy Water Alcohol Milk or non-dairy creamers Noodles or vegetables in soup Juice with pulp Liquid you cannot see through Do not use tobacco/vaping products The bowel preparation solution will be consumed in two parts. Mix the solution the evening before your colonoscopy and refrigerate before drinking. You may add the flavor pack that came with the bowel preparation. Do NOT add ice, sugar or any other flavorings to the solution. Part 1 At 6:00 PM - Evening before your colonoscopy Drink an 8-oz glass of bowel preparation every 10 minutes for a total of 8 glasses. You may continue to drink clear liquids until midnight. Part 2 On the day of your colonoscopy you may drink clear liquids up to (three) 3 hours before your procedure. 4 1/2 hours before your colonoscopy Drink an 8-oz glass of bowel preparation every 10 minutes for a total of 8 glasses. Fifteen (15) minutes later, drink an 8-oz glass of clear liquids every 15 minutes for a total of 2 glasses. You may continue to drink clear liquids up to (three) 3 hours before your exam. 2 Clear liquid diet for two days First evening of clear liquids - take 4 dulcolax (Exlax) tablets after work 10/2019 documented in this encounter [facility] 10-03-2023 History of Present illness Narrative HISTORY AND PHYSICAL Oren Carrasco 1960 REFERRING PHYSICIAN: No ref. provider found CHIEF COMPLAINT: Consult (Positive Cologuard ) HPI: The patient is a 63 year old female referred for endoscopy. Oren is found to be Cologard positive. The patient denies blood in stools, denies abdominal pain, and denies changes in bowel habits. She notes increased abdominal gas. She has constipation - no bowel movement for up to two days, but she does not feel uncomfortable with this. The patient notes no colon cancer in immediate family. The patient has not had previous colonoscopy. She is not taking percocet or tramadol. She has stable hypertension PAST MEDICAL HISTORY Diagnosis Date Arthritis Cervical spondylosis DDD (degenerative disc disease), lumbar Essential hypertension Fibromyalgia Hypothyroidism Insomnia Lumbar stenosis Morbid obesity (HCC) Osteoarthritis of multiple joints Positive colorectal cancer screening using Cologuard test Tendinitis of left shoulder PAST SURGICAL HISTORY Procedure Laterality Date DELIVERY ONLY NEUROPLASTY &/TRANSPOS MEDIAN NRV CARPAL TUNNE Right 1999 Carpal tunnel decomp OPEN REPAIR OF ROTATOR CUFF ACUTE Bilateral 2012 and 2013 Rotator cuff repair, and right shoulder x 2 PAST SURGICAL HISTORY OF Bilateral 04/13/2016 bilateral knee arthroscopy by Dr. Cole 2015 and right in 1995 PAST SURGICAL HISTORY OF Left 2011 plantar fascia release PAST SURGICAL HISTORY OF Left 2018 left foot-cyst excision and repair of torn ligament. TOTAL KNEE REPLACEMENT Right 2017 UNLISTED PROC, POLYETHYLENE EXCHANGE FOR A PARTIAL K[place]EE REPLACEMENT ([place] [address]) Left 2019 VAGINAL HYSTERECTOMY UTERUS 250 GM/< 06/2016 Hysterectomy, vaginal with ovaries removed Current Outpatient Medications Medication Sig bisoprolol-hydroCHLOROthiazide (ZIAC) 5-6.25 mg per tablet Take 1 tablet by mouth once daily. DULoxetine (CYMBALTA) 60 mg capsule Take 60 mg by mouth once daily. melatonin 10 mg tab Take 10 mg by mouth daily at bedtime. celecoxib (CELEBREX) 200 mg capsule Take 200 mg by mouth twice daily. Pregabalin (LYRICA) 200 mg capsule Take 200 mg by mouth three times a day. LEVOTHYROXINE SODIUM (LEVOTHROID ORAL) Take 75 mcg by mouth once daily. Except only takes 1/2 tab Sun and Thurs oxyCODONE-acetaminophen (PERCOCET) 5-325 mg tablet Take 1 tablet by mouth twice daily as needed for Pain (knee pain). (Patient not taking: Reported on 10/03/2023) traMADol (ULTRAM) 50 mg tablet Take 1 tablet by mouth twice daily as needed for Pain. (Patient not taking: Reported on 10/03/2023) No current facility-administered medications for this visit. ALLERGIES: Patient has no known allergies. PERSONAL HISTORY: Social History Tobacco Use Smoking status: Never Smokeless tobacco: Never Substance Use Topics Alcohol use: No Drug use: No FAMILY HISTORY Problem Relation Age of Onset Alzheimer's Disease Mother Hypertension Mother Heart disease Father The review of systems data was entered by the nurse and reviewed by ut Nursing Notes: Melanie Doyle RN 10/03/2023 3:23 PM Signed REVIEW OF SYSTEMS: General: The patient denies fatigue, denies weight loss, NOTES weight gain, denies feeling hot, and denies feelings of cold. Eyes: The patient denies glaucoma, denies eye injury/surgery, does not wear glasses or contacts. Ear/Nose/Throat: The patient denies allergies, denies hayfever, denies ear infections, and denies bloody noses. Cardiovascular: The patient denies chest pain, denies heart disease, NOTES high blood pressure,denies cardiac stent, denies prior heart attack, denies irregular heart beat, denies high cholesterol, denies poor circulation, denies heart failure, other cardiac issues, NOTES claudication, denies cold feet, denies peripheral arterial stent. Respiratory: The patient denies tuberculosis, denies pneumonia, denies frequent cough, denies pulmonary embolism, denies shortness of breath, and denies coughing up blood. Gastrointestinal: The patient denies difficulty swallowing, denies acid reflux, denies ulcers, denies vomiting, denies jaundice/hepatitis, denies gallbladder problems, denies black or tarry stools, denies hemorrhoids, denies bleeding from rectum, denies diverticulitis, NOTES constipation, denies diarrhea, denies loss of stool control, and denies hernias. Kidney/Bladder: The patient denies kidney stones, denies urine infections, and denies bloody urine. Skin: The patient denies a history of skin cancer, denies bleeding/changing moles, and denies a history of skin rash. Neurologic: The patient denies a history of epilepsy/convulsions, denies headaches, denies head/spinal injuries, and denies stroke/TIA. Psychiatric: The patient denies psychiatric medications, denies depression, and denies voices, denies substance abuse. Endocrine: The patient NOTES thyroid disorders, denies diabetes, and denies hormonal problems. Hematologic: The patient denies a history of bruising, denies bleeding, and denies anemia, denies blood clots. Infections: The patient denies a history of measles and mumps, denies rheumatic fever, and denies sexually transmitted diseases. Musculoskeletal: The patient denies back pain/injury, NOTES back problems, NOTES sciatica, NOTES knee/foot trouble, NOTES arthritis, or denies gout. When was patient's last Mammogram screening? Unknown Last Colonoscopy: None, positive Cologuard Melanie Vivek, RN PHYSICAL EXAMINATION: General: The patient is 63 year old female, well nourished, well hydrated in no acute distress. The patient is oriented to time, place, and person. VITALS: Blood pressure 134/72, pulse 83, temperature 36.7 C (98 F), height 162.6 cm (5' 4 ), weight 119.6 kg (263 lb 9.6 oz), SpO2 99 %. Body mass index is 45.25 kg/m . Head: Normal cephalic, atraumatic Eyes: pupils are equally round, sclera are clear/anicteric Neck is supple with no tracheal deviation Cardiac: normal heart sounds, regular Respiratory: normal breath sounds, normal respiratory excursion and pattern. Abdominal exam: benign Extremities: no clubbing, cyanosis or edema. Neuro: non focal Psych: normal mood Assessment IMPRESSION: cologard positive PLAN: I have discussed the above with the patient. I have offered colonoscopy, possible biopsies I have explained the procedure to the patient. I have counseled the patient as to the risks of the procedure, including but not limited to: infection, bleeding, injury to any intrabdominal organs such as liver/spleen, perforation of the GI tract, inability to complete the procedure, complications of anesthesia, etc. - the patient understands. I have explained to the patient the difference between IV conscious sedation and MAC anesthesia - and I have offered either, according to the patient's wishes. I have explained that with IV conscious sedation there is no anesthesia provider available and therefore there is a limitation of the amount of IV medications that can be given and that the patient may wake up in the middle of the procedure and/or experience pain/discomfort during the procedure. Further discussion was done and the patient was given the opportunity to ask questions and all questions were answered. The patient chooses MAC anesthesia. The patient wishes to proceed. I have answered all questions to the patient s satisfaction and the patient has no further questions. My clinic staff has educated the patient as to the colon cleansing regimen and I have prescribed Golytely for the colon cleansing solution. The patient will be scheduled for the procedure at [facility]. Patient wants to be scheduled in January. Diagnoses: (R19.5) Positive colorectal cancer screening using Cologuard test (primary encounter diagnosis) I have confirmed and edited as necessary, the PFSH and ROS obtained by others. Consultation requested by Dr. Constanza Flower for an opinion regarding patient's Cologard positivity. My final recommendations will be communicated back to the requesting physician by way of shared Medical record or letter to requesting physician via US mail. Medical Decision Making: Problems: Low: Stable chronic illness Risk: Low: Low risk from testing/treatment Medical Decision Making Level: 3 - Low Rashida Pierre MD documented in this encounter [facility] 11-24-2022 Hospital Discharge instructions Patient Education 11/24/2022 07:45:54 Epidural Steroid Injection, Care After Epidural Steroid Injection, Care After Refer to this sheet in the next few weeks. These instructions provide you with information about caring for yourself after your procedure. Your health care provider may also give you more specific instructions. Your treatment has been planned according to current medical practices, but problems sometimes occur. Call your health care provider if you have any problems or questions after your procedure. What can I expect after the procedure? After your procedure, it is common to feel a little discomfort at the injection site. Follow these instructions at home: For 24 hours after the procedure: ?Avoid using heat on the injection site. ?Do not take a tub bath, and do not soak in water. ?Do not drive if you received a medicine to help you relax (sedative). If directed, put ice on the injection site: ?Put ice in a plastic bag. ?Place a towel between your skin and the bag. ?Leave the ice on for 20 minutes, 2 3 times a day. Return to your normal activities as told by your health care provider. Ask your health care provider what activities are safe for you. You may remove the bandage (dressing) after 24 hours. Take ougm-pel-talaxmd and prescription medicines only as told by your health care provider. Keep all follow-up visits as told by your health care provider. This is important. Contact a health care provider if: You have a fever. You continue to have pain and soreness around the injection site, even after taking ydug-nvc-dvotiut pain medicine. You have severe, sudden, or lasting nausea or vomiting. Get help right away if: You have severe pain at the injection site that is not relieved by medicines. You develop a severe headache or a stiff neck. You become sensitive to light. You have any new numbness or weakness in your legs or arms. You lose control of your bladder or bowel movements. You have trouble breathing. This information is not intended to replace advice given to you by your health care provider. Make sure you discuss any questions you have with your health care provider. Document Released: 02/07/2012 Document Revised: 10/05/2018 Document Reviewed: 02/07/2017 [employer] Patient Education 2019 [employer] [facility]2022 Summary of episode note Discharge Instructions Thank you for allowing [facility] to assist you with your healthcare needs. The following is important discharge information regarding your hospital visit. Your Care Team CONSTANZA FLOWER DO Your Diagnosis Lumbar stenosis with neurogenic claudication Cervical spondylosis with radiculopathy DDD (degenerative disc disease), lumbar Fibromyalgia Morbid obesity with BMI of 40.0-44.9, adult What to do next Scheduled Follow-Up Appointments Appointment Type When With Where Contact InformationPC OV 12/06/2022 02:00 PM CONSTANZA MCCRARY DO [address] [phone] PC OV 01/05/2023 02:30 PM CONSTANZA MCCRARY DO [address] [phone] Allergies NKA Medications Please ask your primary doctor or pharmacist before taking any other medication not listed, including over the counter drugs, herbal medications, vitamins and or supplements as they may interact with your home medications. What How Much When Why Instructions Last Dose Unchanged bisoprolol-hydrochlorothiazide (bisoprolol-hydrochlorothiazide 5 - 6.25 mg oral tablet) 1 tab(s) by mouth Once a day (in the evening) Essential hypertension Unchanged DULoxetine (Cymbalta 60 mg oral delayed release capsule) 1 cap by mouth Once a day Fibromyalgia DDD (degenerative disc disease), lumbar Duration: 90 Days fill date 2021 Unchanged etodolac (etodolac 400 mg oral tablet) 1 tab(s) by mouth Two (2) times a day Unchanged levothyroxine (Synthroid 75 mcg (0.075 mg) oral tablet) See instructions TAKE 1/ 2 TABLET MONDAY AND MONDAY & 1 TABLET ON THE OTHER DAYS OF THE WEEK Unchanged loratadine (Claritin 10 mg oral tablet) 1 tab(s) by mouth Once a day OTC Unchanged melatonin (melatonin 3 mg oral tablet) 2 tab(s) by mouth Daily at bedtime as needed for as needed for insomnia Unchanged pregabalin (Lyrica 200 mg oral capsule) 1 cap by mouth Three (3) times a day Right lumbar radiculopathy Replaces previous Rx for the 150 mg dose Please take this list to your next doctor s visit. Bring all medications you take, including over the counter medications, herbals and other supplements with you to your doctor s visit. Patients and families are reminded to discard old lists and to update any records with all medication providers or retail pharmacies. Education Materials Epidural Steroid Injection, Care After Refer to this sheet in the next few weeks. These instructions provide you with information about caring for yourself after your procedure. Your health care provider may also give you more specific instructions. Your treatment has been planned according to current medical practices, but problems sometimes occur. Call your health care provider if you have any problems or questions after your procedure. What can I expect after the procedure? After your procedure, it is common to feel a little discomfort at the injection site. Follow these instructions at home: For 24 hours after the procedure: ? Avoid using heat on the injection site. ? Do not take a tub bath, and do not soak in water. ? Do not drive if you received a medicine to help you relax (sedative). If directed, put ice on the injection site: ? Put ice in a plastic bag. ? Place a towel between your skin and the bag. ? Leave the ice on for 20 minutes, 2 3 times a day. Return to your normal activities as told by your health care provider. Ask your health care provider what activities are safe for you. You may remove the bandage (dressing) after 24 hours. Take bjae-edu-lkpqdmq and prescription medicines only as told by your health care provider. Keep all follow-up visits as told by your health care provider. This is important. Contact a health care provider if: You have a fever. You continue to have pain and soreness around the injection site, even after taking keyv-teh-icqrdql pain medicine. You have severe, sudden, or lasting nausea or vomiting. Get help right away if: You have severe pain at the injection site that is not relieved by medicines. You develop a severe headache or a stiff neck. You become sensitive to light. You have any new numbness or weakness in your legs or arms. You lose control of your bladder or bowel movements. You have trouble breathing. This information is not intended to replace advice given to you by your health care provider. Make sure you discuss any questions you have with your health care provider. Document Released: 02/07/2012 Document Revised: 10/05/2018 Document Reviewed: 02/07/2017 [employer] Patient Education 2020 [employer] Additional Information VACCINATE! IT SAVES LIVES! Members of the community who have not yet received the COVID-19 vaccine and would like to receive it can visit one of [facility] vaccine clinics. There are many vaccine clinic locations within the [facility]. For locations and available times, please visit [email or web address] It is important to note that some COVID mobile vaccine clinics are held outdoors and may be canceled in rainy or stormy conditions. To learn more about pediatric vaccinations (ages 5-11), we invite you to visit the [facility] webpage. [email or web address] To learn more about the COVID-19 vaccine, we invite you to visit the [facility] website for a list of frequently asked questions. [email or web address] [facility] Patient Portal Access Instructions: Stay connected with your healthcare team and access your personal medical information anytime with the [facility] Patient Portal.If you would like a full copy of your medical records, please contact the [facility] Medical Records Department, Monday through Monday between 8a.m. and 4:30p.m. Please follow the directions below to access the portal: 1.Access the email account you provided upon registration to the [facility].2.Look for an invitation email from [facility].3.Open the email and access the invitation link: Accept Invitation to [employer]4.Fill in the required pérez to create your account. Sign into [email or web address] with your username and password that you created in the above steps to stay up to date. You can then view a summary of results, a summary of your visits, and the ability to download your summaries to your computer or send the information securely to a physician. Remember that your healthcare information is confidential, so carefully consider who you will allow to register on the [facility] Patient Portal for access to your information. You can also access the [facility] Patient Portal on the Bangee. Simply click on Health Records under Health Data and then click on the [employer] logo. HOW TO SAFELY DISPOSE OF PRESCRIPTION MEDICATIONS Please use one of the following methods to safely dispose of your unused medications. 1.Use a drug disposal kit: the drug disposal pouch allows you to safely discard your old and unused drugs. Ask your nurse to give you one when you are discharged.2.Visit a local take-back location: Many local pharmacies and police departments have programs that collect old and unwanted prescription drugs. Call your local pharmacy or go to [email or web address] to find one close to you.3.Make use of household items: Use cat litter or old coffee grounds to dispose medications if other options are not available. Mix your drugs with these household products, seal them in an airtight container and throw it into the garbage. Call [facility]: [phone] to be sure your drugs can be disposed of in this way. Some medicines may require a different approach.4.Never flush your medications down the toilet. IF YOU HAVE BEEN PRESCRIBED AN OPIOID FOR PAIN If you have been prescribed an opioid (such as hydrocodone, oxycodone or morphine), it is critical to understand the possible side effects and risks of opioid pain medications. Even when taken as directed, opioids can have several side effects including: Tolerance, meaning you might need to take more of a medication for the same pain relief. Nausea, vomiting and/or constipation. Sleepiness, dizziness, dry mouth, confusion, depression or itching. Physical dependence, meaning you have withdrawal symptoms when a medication is stopped, can develop within a few days. KNOW YOUR RESPONSIBILITIES It is important to know exactly how much and how often to take the opioid pain medications you are prescribed. Never take opioids in higher amounts or more often than prescribed. Do not combine opioids with alcohol or other drugs that cause drowsiness, such as benzodiazepines, also known as benzos, including diazepam and alprazolam, muscle relaxants or sleep aids. Never sell or share prescription opioids. This is illegal. Store opioids in a secure place and out of reach of others (including children, family, friends and visitors). The last page of this document has been signed and retained as a CHART COPY. Signatures Patient Education Materials Epidural Steroid Injection, Care After Medication Leaflets My discharge plan and instructions have been reviewed and explained to me and I,GABRIEL OREN L understand my current condition and have read and understand these discharge instructions. I have received a written copy of the plan/instructions. If I have questions, I am aware that I should contact my doctor. Patient/Probe Operator Signature: Date/Time: Relationship to Patient: Witness Name/Signature: Date/Time: [facility] 11-24-2022 History and physical note History and Physical Update I have examined the patient; reviewed the History and Physical and there are no changes to the History and Physical unless noted below. History and Physical Chief Complaint Pt c/o bilateral shoulder, RUE, low back and BLE pain, L>R. History of Present Illness Patient returns for routine visit today chief complaint of transverse back pain and typically left greater than right leg pain when walking and standing. 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 Denies new focal weakness. Also complaining of neck pain and muscular pain in her upper trapezii but also radiation of pain into the upper extremity left greater than right. Says pain radiates all the way to her hand describes it as a paresthesia and deep ache. Says bladder urgency continues. She senses that she has to go to the bathroom but only has seconds until she has incontinence at times. Denies involuntary limb movements. X-rays of cervical spine done since last visit show multilevel lumbar degenerative disc and joint disease. There is a mild anterior listhesis of C4 on 5 and with flexion a mild 2 mm anterior listhesis of C3 on 4. Reviewed findings with patient. Says since last seen primary care physician Dr. Flower did increase pregabalin to 200 mg 3 times daily she is now at the maximum dose does not notice it that helps her that much. She also takes etodolac and duloxetine at 60 mg daily. Because of increasing left leg pain patient says she stopped etodolac last hoping that she could get in for an epidural steroid injection which historically gives her lasting benefit 80%. Physical Exam Vitals and Measurements HR: 58 RR: 17 BP: 139/74 SpO2: 98% HT: 162.6 cm WT: 121.35 kg BMI: 45.9 Oxygen Therapy: Room air Primary Pain Intensity: 10 (11/21/22 09:57:00) Alert pleasant female no distress morbid obesity unchanged Cervical flexion relatively asymptomatic negative Lhermitte's phenomenon Mild hyperreflexia arms and legs. Reports paresthesia of left arm radiating to the hand Spurling's positive on the left increasing left arm pain. Negative straight leg raise at 90 degrees lumbar extension in standing immediately causes leg pain on the left that radiates to the foot and ankle in an L5 distribution Imaging Results and Diagnostics (10/24/2022 08:33 EST XR Spine Cerv Ap/Lat/Flex/Ext) ORIGINAL EXAMINATION: 4 XRAY VIEWS OF THE CERVICAL SPINE INCLUDING FLEX/EX VIEWS10/24/2022 8:33 am CERVICAL SPINE W/ FLEX and EXT COMPARISON: None HISTORY: ORDERING SYSTEM PROVIDED HISTORY: Reason for Exam: Neck pain and left greater than right arm pain and paresthesia FINDINGS: Straightening of the cervical lordosis noted. Slight anterolisthesis noted of C4 on C5. Loss of disc height and spurring noted at C5-6 and C6-7. Multilevel facet and uncovertebral spurring noted. Minimal anterolisthesis of C3 on C4 develops on the flexion view, measuring less than 2 mm. Otherwise, no change in alignment is seen on the flexion or extension views. IMPRESSION: Degenerative changes. No radiographic evidence of instability Interpreted by: Bunny Syed MD Preliminary Report By: Bunny Syed MD Electronically signed By Bunny Syed MD Dictated Date: 10/24/2022 3:05:18 PM Prelim Date: 10/24/2022 3:07:05 PM [1] Social History Alcohol Use: Never., 06/06/2019 Employment/School Status: Employed., 12/09/2019 Exercise Home/Environment Domestic Concerns: None. Living situation: Home/Independent. 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 Lives In: Multilevel home. Current Home Treatments CPAP. Professional Skilled Services or Special Community Resources None., 03/26/2020 Nutrition/Health Type of diet: Regular. Appetite Good. Eating Difficulties None. Caffeine intake amount: Carbonated beverage- 3 servings/day., 03/26/2020 Substance Abuse Use: Never., 06/06/2019 Tobacco Tobacco Use: Never (less than 100 in lifetime), No smoke or tobacco exposure., 06/06/2019 Family History Alzheimer's disease: Mother. Heart disease: Father. Hypertension: Mother. Assessment/Plan 1. Lumbar stenosis with neurogenic claudication Historically very good relief from epidural steroid injections the last was done August 10, 2022. Left leg pain lately greater than right leg pain. Per discussion with patient we will set up an epidural steroid injection and left L4-5 will need a 20-gauge 6 inch Touhy needle regarding body habitus. She has already held etodolac which should continue until after the injection hopefully later this week. Additional preprocedural instructions given to patient Ordered: MRI Spine Cervical w/o Contrast PM Inj Spine L/S With Imaging [id number] 2. DDD (degenerative disc disease), lumbar Ordered: MRI Spine Cervical w/o Contrast PM Inj Spine L/S With Imaging [id number] 3. Neck pain Ordered: MRI Spine Cervical w/o Contrast PM Inj Spine L/S With Imaging [id number] 4. Cervical spondylosis with radiculopathy Patient does have significant cervical spondylosis including anterior listhesis of C3 on 4 and C4 on 5. Presents as cervical radiculopathy so we will obtain cervical MRI. Relative hyperreflexia may be a sign of myelopathy so imaging of cervical spinal cord important at this juncture. Depending on MRI results would refer to physical therapy if no sinister findings. Ordered: MRI Spine Cervical w/o Contrast PM Inj Spine L/S With Imaging [id number] 5. Fibromyalgia Ordered: MRI Spine Cervical w/o Contrast PM Inj Spine L/S With Imaging [id number] 6. Morbid obesity with BMI of 40.0-44.9, adult Problem List/Past Medical History Ongoing Abnormal finding on radiology exam Arthritis Cervical spondylosis with radiculopathy DDD (degenerative disc disease), lumbar Essential hypertension Fibromyalgia Hypothyroidism Lumbar stenosis with neurogenic claudication Morbid obesity with BMI of 40.0-44.9, adult Multiple joint pain Neck pain Primary osteoarthritis of left knee Right lumbar radiculopathy Historical Pre-op evaluation Screening for lipid disorders Procedure/Surgical History Total knee replacement: 03/2017 Rotator cuff repair Total hysterectomy delivery Carpal tunnel release Laparoscopy Foot Allergies NKA [1] [1] Specialty Office Visit Note; EDGARDO BARR MD 11/21/2022 10:37 EST Digitally Signed by EDGARDO BARR MD on 11/24/2022 07:[address] [facility] 08-10-2022 Hospital Discharge instructions Patient Education 08/10/2022 08:45:33 Epidural Steroid Injection, Care After Epidural Steroid Injection, Care After Refer to this sheet in the next few weeks. These instructions provide you with information about caring for yourself after your procedure. Your health care provider may also give you more specific instructions. Your treatment has been planned according to current medical practices, but problems sometimes occur. Call your health care provider if you have any problems or questions after your procedure. What can I expect after the procedure? After your procedure, it is common to feel a little discomfort at the injection site. Follow these instructions at home: For 24 hours after the procedure: ?Avoid using heat on the injection site. ?Do not take a tub bath, and do not soak in water. ?Do not drive if you received a medicine to help you relax (sedative). If directed, put ice on the injection site: ?Put ice in a plastic bag. ?Place a towel between your skin and the bag. ?Leave the ice on for 20 minutes, 2 3 times a day. Return to your normal activities as told by your health care provider. Ask your health care provider what activities are safe for you. You may remove the bandage (dressing) after 24 hours. Take adkg-dih-ychmqfb and prescription medicines only as told by your health care provider. Keep all follow-up visits as told by your health care provider. This is important. Contact a health care provider if: You have a fever. You continue to have pain and soreness around the injection site, even after taking vdnp-oga-attrrtw pain medicine. You have severe, sudden, or lasting nausea or vomiting. Get help right away if: You have severe pain at the injection site that is not relieved by medicines. You develop a severe headache or a stiff neck. You become sensitive to light. You have any new numbness or weakness in your legs or arms. You lose control of your bladder or bowel movements. You have trouble breathing. This information is not intended to replace advice given to you by your health care provider. Make sure you discuss any questions you have with your health care provider. Document Released: 02/07/2012 Document Revised: 10/05/2018 Document Reviewed: 02/07/2017 [employer] Patient Education [address] [employer] [facility] 08-10-2022 Summary of episode note Discharge Instructions Thank you for allowing [facility] to assist you with your healthcare needs. The following is important discharge information regarding your hospital visit. Your Care Team CONSTANZA FLOWER DO Your Diagnosis Lumbar stenosis with neurogenic claudication Right lumbar radiculopathy DDD (degenerative disc disease), lumbar Fibromyalgia Morbid obesity with BMI of 40.0-44.9, adult What to do next Scheduled Follow-Up Appointments Appointment Type When With Where Contact InformationPC OV 01/05/2023 02:30 PM CONSTANZA MCCRARY DO [facility] [address] [id number] Allergies NKA Medications Please ask your primary doctor or pharmacist before taking any other medication not listed, including over the counter drugs, herbal medications, vitamins and or supplements as they may interact with your home medications. What How Much When Why Instructions Last Dose Changed DULoxetine (Cymbalta 60 mg oral delayed release capsule) 1 cap by mouth Once a day Duration: 30 Days fill date 2021 Pickup at [facility]/pharmacy #[id number] Unchanged bisoprolol-hydrochlorothiazide (bisoprolol-hydrochlorothiazide 5 - 6.25 mg oral tablet) 1 tab(s) by mouth Once a day (in the evening) Essential hypertension Unchanged etodolac (etodolac 400 mg oral tablet) 1 tab(s) by mouth Two (2) times a day Unchanged levothyroxine (Synthroid 75 mcg (0.075 mg) oral tablet) See instructions TAKE 1/ 2 TABLET MONDAY AND MONDAY & 1 TABLET ON THE OTHER DAYS OF THE WEEK Unchanged loratadine (Claritin 10 mg oral tablet) 1 tab(s) by mouth Once a day OTC Unchanged melatonin (melatonin 3 mg oral tablet) 2 tab(s) by mouth Daily at bedtime as needed for as needed for insomnia Unchanged pregabalin (Lyrica 150 mg oral capsule) 1 cap by mouth Three (3) times a day Fibromyalgia Duration: 30 Days Pharmacy Information [facility]/pharmacy #[id number]: [address], [place] [id number] [phone] Please take this list to your next doctor s visit. Bring all medications you take, including over the counter medications, herbals and other supplements with you to your doctor s visit. Patients and families are reminded to discard old lists and to update any records with all medication providers or retail pharmacies. Education Materials Epidural Steroid Injection, Care After Refer to this sheet in the next few weeks. These instructions provide you with information about caring for yourself after your procedure. Your health care provider may also give you more specific instructions. Your treatment has been planned according to current medical practices, but problems sometimes occur. Call your health care provider if you have any problems or questions after your procedure. What can I expect after the procedure? After your procedure, it is common to feel a little discomfort at the injection site. Follow these instructions at home: For 24 hours after the procedure: ? Avoid using heat on the injection site. ? Do not take a tub bath, and do not soak in water. ? Do not drive if you received a medicine to help you relax (sedative). If directed, put ice on the injection site: ? Put ice in a plastic bag. ? Place a towel between your skin and the bag. ? Leave the ice on for 20 minutes, 2 3 times a day. Return to your normal activities as told by your health care provider. Ask your health care provider what activities are safe for you. You may remove the bandage (dressing) after 24 hours. Take otzy-pyu-abwrrpq and prescription medicines only as told by your health care provider. Keep all follow-up visits as told by your health care provider. This is important. Contact a health care provider if: You have a fever. You continue to have pain and soreness around the injection site, even after taking ewgn-efa-mkscgho pain medicine. You have severe, sudden, or lasting nausea or vomiting. Get help right away if: You have severe pain at the injection site that is not relieved by medicines. You develop a severe headache or a stiff neck. You become sensitive to light. You have any new numbness or weakness in your legs or arms. You lose control of your bladder or bowel movements. You have trouble breathing. This information is not intended to replace advice given to you by your health care provider. Make sure you discuss any questions you have with your health care provider. Document Released: 02/07/2012 Document Revised: 10/05/2018 Document Reviewed: 02/07/2017 [employer] Patient Education 2020 [employer]. Additional Information VACCINATE! IT SAVES LIVES! Members of the community who have not yet received the COVID-19 vaccine and would like to receive it can visit one of [facility] vaccine clinics. There are many vaccine clinic locations within the [facility]. For locations and available times, please visit [email or web address] It is important to note that some COVID mobile vaccine clinics are held outdoors and may be canceled in rainy or stormy conditions. To learn more about pediatric vaccinations (ages 5-11), we invite you to visit the [facility] webpage. [email or web address] To learn more about the COVID-19 vaccine, we invite you to visit the [employer] website for a list of frequently asked questions. [email or web address] [facility] Patient Portal Access Instructions: Stay connected with your healthcare team and access your personal medical information anytime with the [facility] Patient Portal.If you would like a full copy of your medical records, please contact the [facility] Medical Records Department, Monday through Monday between 8a.m. and 4:30p.m. Please follow the directions below to access the portal: 1.Access the email account you provided upon registration to the [facility].2.Look for an invitation email from [facility].3.Open the email and access the invitation link: Accept Invitation to [facility] [employer]4.Fill in the required pérez to create your account. Sign into [email or web address] with your username and password that you created in the above steps to stay up to date. You can then view a summary of results, a summary of your visits, and the ability to download your summaries to your computer or send the information securely to a physician. Remember that your healthcare information is confidential, so carefully consider who you will allow to register on the [facility] Patient Portal for access to your information. You can also access the [facility] [employer] Patient Portal on the [employer] lauren. Simply click on Health Records under Health Data and then click on the [facility] logo. HOW TO SAFELY DISPOSE OF PRESCRIPTION MEDICATIONS Please use one of the following methods to safely dispose of your unused medications. 1.Use a drug disposal kit: the drug disposal pouch allows you to safely discard your old and unused drugs. Ask your nurse to give you one when you are discharged.2.Visit a local take-back location: Many local pharmacies and police departments have programs that collect old and unwanted prescription drugs. Call your local pharmacy or go to http://MaSpatule.[email or web address]/[email or web address] to find one close to you.3.Make use of household items: Use cat litter or old coffee grounds to dispose medications if other options are not available. Mix your drugs with these household products, seal them in an airtight container and throw it into the garbage. Call [facility]: [phone] to be sure your drugs can be disposed of in this way. Some medicines may require a different approach.4.Never flush your medications down the toilet. IF YOU HAVE BEEN PRESCRIBED AN OPIOID FOR PAIN If you have been prescribed an opioid (such as hydrocodone, oxycodone or morphine), it is critical to understand the possible side effects and risks of opioid pain medications. Even when taken as directed, opioids can have several side effects including: Tolerance, meaning you might need to take more of a medication for the same pain relief. Nausea, vomiting and/or constipation. Sleepiness, dizziness, dry mouth, confusion, depression or itching. Physical dependence, meaning you have withdrawal symptoms when a medication is stopped, can develop within a few days. KNOW YOUR RESPONSIBILITIES It is important to know exactly how much and how often to take the opioid pain medications you are prescribed. Never take opioids in higher amounts or more often than prescribed. Do not combine opioids with alcohol or other drugs that cause drowsiness, such as benzodiazepines, also known as benzos, including diazepam and alprazolam, muscle relaxants or sleep aids. Never sell or share prescription opioids. This is illegal. Store opioids in a secure place and out of reach of others (including children, family, friends and visitors). The last page of this document has been signed and retained as a CHART COPY. Signatures Patient Education Materials Epidural Steroid Injection, Care After Medication Leaflets My discharge plan and instructions have been reviewed and explained to me and I,OREN CARRASCO understand my current condition and have read and understand these discharge instructions. I have received a written copy of the plan/instructions. If I have questions, I am aware that I should contact my doctor. Patient/Probe Operator Signature: Date/Time: Relationship to Patient: Witness Name/Signature: Date/Time: [facility] 08-10-2022 History and physical note Date of Service August 10, 2022 History and Physical Update I have examined the patient; reviewed the History and Physical and there are no changes to the History and Physical unless noted below. History and Physical Chief Complaint Pt c/o low back pain that radiates into her buttocks and right upper leg History of Present Illness This 62-year-old white female is a patient of Dr. Barr. Returns for follow-up pain visit status post right L4-5 epidural steroid injection in June. Reports greater than 80% reduction in pain and radiculopathy. Right leg pain is more intermittent and less intense. Also reports approximately 40 to 50% improvement in low back pain. She is requesting another injection. Current pain rating is a 5 out of 10. She describes it as a stabbing, shooting, aching sensation affecting the low back with radiculopathy into the right buttock and anterior thigh. Denies focal areas of weakness or loss sensation. 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 Is difficult to sit or stand for an extended period of time. This year, she does have a stool to sit on which helps. Stretches daily. Patient denies any falls, infections or hospital visits since last office visit. Alleviating factors: sitting (taking breaks), stretching Medications/treatments: Cymbalta 30 mg daily started at the last visit with me. She is tolerating medication without side effects. PCP prescribes Lyrica and etodolac. Primary Pain Pain Symptoms : Yes Pain Scale Type Adult : 0-10 Pain scale Primary Pain Intensity : 5 Primary Pain Laterality : Bilateral Primary Pain Quality : Aching, Other: numbness, pins/needles, miserable Primary Pain Location : Low back Primary Pain Radiation : Yes Primary Pain Radiation Characteristics : buttocks and right upper thigh Primary Pain Aggravating Factors : Sitting Primary Pain Alleviating Factors : Medication, Repositioning [1] Review of Systems Treatment Response : 06/22/22 les with 50% for 2 weeks. she feels like it helped with pain that radiated down her legs, but did not help with low back pain as much. Pt takes celebrex for good pain relief. AUGUSTIN Maria F - 07/29/2022 14:24 EDT Skeletal Review of Systems Grid Pain in Joint(s) : Yes AUGUSTIN Maria F - 07/29/2022 14:24 EDT Neuro Review of Systems Grid Difficulty w/Balance : No Difficulty Walking : Yes Sensory Disturbance Lower Extremity (L) : No Sensory Disturbance Lower Extremity (R) : Yes Sensory Disturbance Upper Extremity (L) : No Sensory Disturbance Upper Extremity (R) : No Weakness Lower Extremity (L) : No Weakness Lower Extremity (R) : No Weakness Upper Extremity (L) : No Weakness Upper Extremity (R) : No Trouble with speech : No AUGUSTIN Maria Rashida F - 07/29/2022 14:24 EDT Stomach/Bowel Review of Systems Grid Constipation : No Diarrhea : No Nausea : No Vomiting : No AUGUSTIN Maria Rashida F - 07/29/2022 14:24 EDT Hematology Review of Systems Grid Bleeds Easily : No Blood Clots : No Low Blood Count : No AUGUSTIN Maria Rashida F - 07/29/2022 14:24 EDT Sleep Review of Systems Grid Daytime Sleepiness : Yes Fatigue : Yes Insomnia : Yes Snoring : Yes AUGUSTIN Maria Rashida F - 07/29/2022 14:24 EDT Sleep ROS Comments : cpap [2] I have reviewed and assessed the [place] Automated Rx Reporting System (OARRS) report for this patient for refill pattern and other prescriber involvement as part of the appropriate surveillance for the provision of acute and chronic controlled medications. The report was requested and reviewed on the date of this entry, and was considered in the prescribing process. Patient shows no signs of abuse, misuse or diversion of the pain medications. Patient was re-educated on safe use and storage of controlled substances. They are to only take medication as directed, keep opioids locked and away from sight, and to never share medications with others. I have reviewed and agree with any documentation taken by the ancillary staff. Physical Exam Vitals and Measurements HR: 84(Apical) RR: 16 BP: 160/103(Right Arm) SpO2: 95% HT: 162.6 cm WT: 118.8 kg BMI: 44.93 Oxygen Therapy: Room air Primary Pain Intensity: 5 (07/29/22 14:24:00) GENERAL: Well nourished ; no acute distress, follows simple commands. Good hygiene. Answers questions appropriately. ASSISTIVE DEVICES: None . PSYCHIATRIC: Alert and oriented x 3 , cooperative EXTREMITIES: No_ lower extremity pitting edema. Pedal pulses palpable. NEURO: negativeseated straight leg raising. Sensation grossly intact. Dorsiflexion and plantarflexion are intact. MUSCULOSKELETAL: Gait normal . Permit Specialist strength equal Strengths 5/5 in upper and 5/5 in lower extremities. Lumbar spine range of motion intact. Discomfort with lumbar spine range of motion. Muscle tension noted to the lumbosacral and upper gluteal region with palpation. Ambulatory with an antalgic gait pattern. No assist devices. Social History Alcohol Use: Never., 06/06/2019 Employment/School Status: Employed., 12/09/2019 Exercise Home/Environment Domestic Concerns: None. Living situation: Home/Independent. 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 Lives In: Multilevel home. Current Home Treatments CPAP. Professional Skilled Services or Special Community Resources None., 03/26/2020 Nutrition/Health Type of diet: Regular. Appetite Good. Eating Difficulties None. Caffeine intake amount: Carbonated beverage- 3 servings/day., 03/26/2020 Substance Abuse Use: Never., 06/06/2019 Tobacco Tobacco Use: Never (less than 100 in lifetime), No smoke or tobacco exposure., 06/06/2019 Family History Alzheimer's disease: Mother. Heart disease: Father. Hypertension: Mother. Assessment/Plan 1. DDD (degenerative disc disease), lumbar We will schedule her for another right L4-5 lumbar epidural steroid injection. She was given the preprocedure instructions and requirements. Verbalizes understanding. Consideration for trigger point injections to the low back and upper gluteal region depending on results of LES for myofascial component. Cymbalta increased to 60 mg at bedtime. Suggested TENS unit on BIO-NEMS. Ordered: PM Inj Spine L/S With Imaging [id number] 2. Lumbar stenosis with neurogenic claudication Continue low impact exercises and daily stretching. Ordered: PM Inj Spine L/S With Imaging [id number] 3. Right lumbar radiculopathy Improving. Ordered: PM Inj Spine L/S With Imaging [id number] 4. Fibromyalgia Ordered: PM Inj Spine L/S With Imaging [id number] Orders: DULoxetine, Dose : 60 mg = 1 cap(s), Oral, qDay, fill date 07/29/2022, # 30 cap(s), 0 Refill(s), Pharmacy: [facility]/pharmacy #[id number], 162.6, cm, 07/29/22 14:24:00 EDT, Height Problem List/Past Medical History Ongoing Abnormal finding on radiology exam Arthritis DDD (degenerative disc disease), lumbar Essential hypertension Fibromyalgia Hypothyroidism Lumbar stenosis with neurogenic claudication Morbid obesity with BMI of 40.0-44.9, adult Multiple joint pain Primary osteoarthritis of left knee Right lumbar radiculopathy Historical Pre-op evaluation Screening for lipid disorders Procedure/Surgical History Total knee replacement: 03/2017 Rotator cuff repair Total hysterectomy delivery Carpal tunnel release Dilatation and curettage Laparoscopy Foot Allergies NKA [1] [1] Specialty Office Visit Note; SIOBHAN PENDLETON REMY-CHERRY SORTER 07/29/2022 15:19 EDT Digitally Signed by EDGARDO BARR MD on 08/10/2022 08:[address] [facility] 06-22-2022 Hospital Discharge instructions Patient Education 06/22/2022 08:02:49 Epidural Steroid Injection, Care After Epidural Steroid Injection, Care After Refer to this sheet in the next few weeks. These instructions provide you with information about caring for yourself after your procedure. Your health care provider may also give you more specific instructions. Your treatment has been planned according to current medical practices, but problems sometimes occur. Call your health care provider if you have any problems or questions after your procedure. What can I expect after the procedure? After your procedure, it is common to feel a little discomfort at the injection site. Follow these instructions at home: For 24 hours after the procedure: ?Avoid using heat on the injection site. ?Do not take a tub bath, and do not soak in water. ?Do not drive if you received a medicine to help you relax (sedative). If directed, put ice on the injection site: ?Put ice in a plastic bag. ?Place a towel between your skin and the bag. ?Leave the ice on for 20 minutes, 2 3 times a day. Return to your normal activities as told by your health care provider. Ask your health care provider what activities are safe for you. You may remove the bandage (dressing) after 24 hours. Take dbwz-lhj-hmodsop and prescription medicines only as told by your health care provider. Keep all follow-up visits as told by your health care provider. This is important. Contact a health care provider if: You have a fever. You continue to have pain and soreness around the injection site, even after taking fame-mrb-pnnblsp pain medicine. You have severe, sudden, or lasting nausea or vomiting. Get help right away if: You have severe pain at the injection site that is not relieved by medicines. You develop a severe headache or a stiff neck. You become sensitive to light. You have any new numbness or weakness in your legs or arms. You lose control of your bladder or bowel movements. You have trouble breathing. This information is not intended to replace advice given to you by your health care provider. Make sure you discuss any questions you have with your health care provider. Document Released: 02/07/2012 Document Revised: 10/05/2018 Document Reviewed: 02/07/2017 [employer] Patient Education 2020 [employer]. [facility] 06-22-2022 Summary of episode note Discharge Instructions Thank you for allowing [facility] to assist you with your healthcare needs. The following is important discharge information regarding your hospital visit. Your Care Team CONSTANZA FLOWER DO Your Diagnosis Lumbar stenosis with neurogenic claudication Right lumbar radiculopathy Fibromyalgia DDD (degenerative disc disease), lumbar Multiple joint pain Allergies NKA Medications Please ask your primary doctor or pharmacist before taking any other medication not listed, including over the counter drugs, herbal medications, vitamins and or supplements as they may interact with your home medications. What How Much When Why Instructions Last Dose Unchanged bisoprolol-hydrochlorothiazide (bisoprolol-hydrochlorothiazide 5 - 6.25 mg oral tablet) 1 tab(s) by mouth Once a day (in the evening) Essential hypertension Unchanged DULoxetine (Cymbalta 30 mg oral delayed release capsule) 1 cap by mouth Once a day Duration: 30 Days fill date 2021 Unchanged etodolac (etodolac 400 mg oral tablet) 1 tab(s) by mouth Two (2) times a day Unchanged levothyroxine (Synthroid 75 mcg (0.075 mg) oral tablet) See instructions TAKE 1/ 2 TABLET MONDAY AND MONDAY & 1 TABLET ON THE OTHER DAYS OF THE WEEK Unchanged pregabalin (Lyrica 150 mg oral capsule) 1 cap by mouth Three (3) times a day Fibromyalgia Duration: 90 Days Please take this list to your next doctor s visit. Bring all medications you take, including over the counter medications, herbals and other supplements with you to your doctor s visit. Patients and families are reminded to discard old lists and to update any records with all medication providers or retail pharmacies. Education Materials Epidural Steroid Injection, Care After Refer to this sheet in the next few weeks. These instructions provide you with information about caring for yourself after your procedure. Your health care provider may also give you more specific instructions. Your treatment has been planned according to current medical practices, but problems sometimes occur. Call your health care provider if you have any problems or questions after your procedure. What can I expect after the procedure? After your procedure, it is common to feel a little discomfort at the injection site. Follow these instructions at home: For 24 hours after the procedure: ? Avoid using heat on the injection site. ? Do not take a tub bath, and do not soak in water. ? Do not drive if you received a medicine to help you relax (sedative). If directed, put ice on the injection site: ? Put ice in a plastic bag. ? Place a towel between your skin and the bag. ? Leave the ice on for 20 minutes, 2 3 times a day. Return to your normal activities as told by your health care provider. Ask your health care provider what activities are safe for you. You may remove the bandage (dressing) after 24 hours. Take qrvt-ugi-ojnriwj and prescription medicines only as told by your health care provider. Keep all follow-up visits as told by your health care provider. This is important. Contact a health care provider if: You have a fever. You continue to have pain and soreness around the injection site, even after taking caue-dho-qynvsee pain medicine. You have severe, sudden, or lasting nausea or vomiting. Get help right away if: You have severe pain at the injection site that is not relieved by medicines. You develop a severe headache or a stiff neck. You become sensitive to light. You have any new numbness or weakness in your legs or arms. You lose control of your bladder or bowel movements. You have trouble breathing. This information is not intended to replace advice given to you by your health care provider. Make sure you discuss any questions you have with your health care provider. Document Released: 02/07/2012 Document Revised: 10/05/2018 Document Reviewed: 02/07/2017 [employer] Patient Education 2020 [employer] Additional Information VACCINATE! IT SAVES LIVES! Members of the community who have not yet received the COVID-19 vaccine and would like to receive it can visit one of [facility] vaccine clinics. There are many vaccine clinic locations within the [facility]. For locations and available times, please visit [email or web address] It is important to note that some COVID mobile vaccine clinics are held outdoors and may be canceled in rainy or stormy conditions. To learn more about pediatric vaccinations (ages 5-11), we invite you to visit the [facility] webpage. [email or web address] To learn more about the COVID-19 vaccine, we invite you to visit the [facility] website for a list of frequently asked questions. [email or web address] [facility] Patient Portal Access Instructions: Stay connected with your healthcare team and access your personal medical information anytime with the [facility] Patient Portal.If you would like a full copy of your medical records, please contact the [facility] Medical Records Department, Monday through Monday between 8a.m. and 4:30p.m. Please follow the directions below to access the portal: 1.Access the email account you provided upon registration to the [facility].2.Look for an invitation email from [facility].3.Open the email and access the invitation link: Accept Invitation to [facility]4.Fill in the required pérez to create your account. Sign into [email or web address] with your username and password that you created in the above steps to stay up to date. You can then view a summary of results, a summary of your visits, and the ability to download your summaries to your computer or send the information securely to a physician. Remember that your healthcare information is confidential, so carefully consider who you will allow to register on the [facility] Patient Portal for access to your information. You can also access the [facility] Patient Portal on the [employer]. Simply click on Health Records under Health Data and then click on the [employer] logo. HOW TO SAFELY DISPOSE OF PRESCRIPTION MEDICATIONS Please use one of the following methods to safely dispose of your unused medications. 1.Use a drug disposal kit: the drug disposal pouch allows you to safely discard your old and unused drugs. Ask your nurse to give you one when you are discharged.2.Visit a local take-back location: Many local pharmacies and police departments have programs that collect old and unwanted prescription drugs. Call your local pharmacy or go to http://bit.Myrl/0Q1Op0k to find one close to you.3.Make use of household items: Use cat litter or old coffee grounds to dispose medications if other options are not available. Mix your drugs with these household products, seal them in an airtight container and throw it into the garbage. Call [facility]: [phone] to be sure your drugs can be disposed of in this way. Some medicines may require a different approach.4.Never flush your medications down the toilet. IF YOU HAVE BEEN PRESCRIBED AN OPIOID FOR PAIN If you have been prescribed an opioid (such as hydrocodone, oxycodone or morphine), it is critical to understand the possible side effects and risks of opioid pain medications. Even when taken as directed, opioids can have several side effects including: Tolerance, meaning you might need to take more of a medication for the same pain relief. Nausea, vomiting and/or constipation. Sleepiness, dizziness, dry mouth, confusion, depression or itching. Physical dependence, meaning you have withdrawal symptoms when a medication is stopped, can develop within a few days. KNOW YOUR RESPONSIBILITIES It is important to know exactly how much and how often to take the opioid pain medications you are prescribed. Never take opioids in higher amounts or more often than prescribed. Do not combine opioids with alcohol or other drugs that cause drowsiness, such as benzodiazepines, also known as benzos, including diazepam and alprazolam, muscle relaxants or sleep aids. Never sell or share prescription opioids. This is illegal. Store opioids in a secure place and out of reach of others (including children, family, friends and visitors). The last page of this document has been signed and retained as a CHART COPY. Signatures Patient Education Materials Epidural Steroid Injection, Care After Medication Leaflets My discharge plan and instructions have been reviewed and explained to me and IGABRIEL MELODY L understand my current condition and have read and understand these discharge instructions. I have received a written copy of the plan/instructions. If I have questions, I am aware that I should contact my doctor. Patient/Probe Operator Signature: Date/Time: Relationship to Patient: Witness Name/Signature: Date/Time: [facility] 06-22-2022 History and physical note Date of Service June 22, 2022 History and Physical Update I have examined the patient; reviewed the History and Physical and there are no changes to the History and Physical unless noted below. History and Physical Chief Complaint Pt c/o medial LBP and RLE burning. History of Present Illness This 62-year-old white female is a patient of Dr. Barr who returns for follow-up pain visit. In April, she received L4-L5 left lumbar epidural steroid injection. This was her first procedure. It offered 80% reduction in pain ongoing involving the left lower extremity. However, right lower extremity radiculopathy has returned. Symptoms have been more intense the past 3 weeks. Denies injuries or traumas. 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 She anticipates pain will increase substantially as a result. She is expected to stand for 7 hours/day, often in one spot. Failed attempts with conservative treatment. PCP prescribes Lyrica and Savella for fibromyalgia. Also, etodolac 400 mg twice daily as needed from Dr. Flanagan. Patient states Savella makes her sweat and she wants to know if there are any other medication options for fibromyalgia. Current pain rating is a 2 out of 10. She describes as a continuous, aching, stabbing, burning, cszw-uwj-catkfma and numbness sensation radiating from the lumbosacral junction into the right lateral hip and thigh. She denies focal areas of weakness, loss of sensation or bowel or bladder dysfunction. Ambulates independently at community level. Patient denies any falls, infections or hospital visits since last office visit. Aggravating factors: driving the car, climbing stairs Alleviating factors: sitting Primary Pain Pain Symptoms : Yes Pain Scale Type Adult : 0-10 Pain scale Primary Pain Intensity : 2 Primary Pain Laterality : Right Primary Pain Quality : Aching, Burning Primary Pain Location : Leg [1] Review of Systems Treatment Response : Pt states previous LESI 05/05/22 80% effective, ongoing. Pain is more on the R side. Pt returns to work next week. Shae Townsend 06/15/2022 7:57 EDT General Review of Systems Grid Fever : No Weight Gain : No Weight Loss : No Shae Townsend 06/15/2022 7:57 EDT Skeletal Review of Systems Grid Joints Swelling/Stiffness : No Pain in Joint(s) : Yes Shae Townsend 06/15/2022 7:57 EDT Neuro Review of Systems Grid Difficulty w/Balance : No Difficulty Walking : Yes Loss of Consciousness : No Memory Loss : No Paralysis Lower Extremity (L) : No Paralysis Lower Extremity (R) : No Paralysis Upper Extremity (L) : No Paralysis Upper Extremity (R) : No Sensory Disturbance Lower Extremity (L) : No Sensory Disturbance Lower Extremity (R) : Yes Sensory Disturbance Upper Extremity (L) : No Sensory Disturbance Upper Extremity (R) : No Weakness Lower Extremity (L) : No Weakness Lower Extremity (R) : Yes Weakness Upper Extremity (L) : No Weakness Upper Extremity (R) : No Trouble with speech : No (Comment: walking distances. [Shae Townsend 06/15/2022 7:57 EDT] ) Stomach/Bowel Review of Systems Grid Constipation : No Diarrhea : No Nausea : No Vomiting : No Shae Townsend 06/15/2022 7:57 EDT Hematology Review of Systems Grid Bleeds Easily : No Blood Clots : No Low Blood Count : No Shae Townsend 06/15/2022 7:57 EDT Sleep Review of Systems Grid Daytime Sleepiness : No Fatigue : Yes Insomnia : No Snoring : No Shae Townsend 06/15/2022 7:57 EDT Sleep ROS Comments : CPAP at night [2] I have reviewed and assessed the [place] Automated Rx Reporting System (OARRS) report for this patient for refill pattern and other prescriber involvement as part of the appropriate surveillance for the provision of acute and chronic controlled medications. The report was requested and reviewed on the date of this entry, and was considered in the prescribing process. Patient shows no signs of abuse, misuse or diversion of the pain medications. Patient was re-educated on safe use and storage of controlled substances. They are to only take medication as directed, keep opioids locked and away from sight, and to never share medications with others. I have reviewed and agree with any documentation taken by the ancillary staff. Physical Exam Vitals and Measurements HR: 69 RR: 17 BP: 139/89(Right Arm) SpO2: 98% HT: 162.6 cm WT: 115.75 kg BMI: 43.78 Oxygen Therapy: Room air Primary Pain Intensity: 2 (06/15/22 07:57:00) GENERAL: Well nourished ; no acute distress, follows simple commands. Good hygiene. Answers questions appropriately. ASSISTIVE DEVICES: None . PSYCHIATRIC: Alert and oriented x 3 , cooperative EXTREMITIES: Bilateraltrace lower extremity pitting edema. Pedal pulses palpable. NEURO: negativeseated straight leg raising. Sensation grossly intact. Dorsiflexion and plantarflexion are intact. MUSCULOSKELETAL: Gait normal . Permit Specialist strength equal Strengths 5/5 in upper and 5/5 in lower extremities. Lumbar spine range of motion intact. Tenderness affecting lumbosacral junction with palpation. Muscle tightness in the surrounding paraspinous. No focal areas of weakness. She is ambulatory with a steady nonantalgic gait pattern. Social History Alcohol Use: Never., 06/06/2019 Employment/School Status: Employed., 12/09/2019 Exercise Home/Environment Domestic Concerns: None. Living situation: Home/Independent. 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 Lives In: Multilevel home. Current Home Treatments CPAP. Professional Skilled Services or Special Community Resources None., 03/26/2020 Nutrition/Health Type of diet: Regular. Appetite Good. Eating Difficulties None. Caffeine intake amount: Carbonated beverage- 3 servings/day., 03/26/2020 Substance Abuse Use: Never., 06/06/2019 Tobacco Tobacco Use: Never (less than 100 in lifetime), No smoke or tobacco exposure., 06/06/2019 Family History Alzheimer's disease: Mother. Heart disease: Father. Hypertension: Mother. Assessment/Plan 1. Lumbar stenosis with neurogenic claudication We will proceed forward with scheduling another lumbar epidural steroid injection. Consider using a right paramedian approach. Left lower extremity symptoms minimal at today's visit. She was given the preprocedure instructions and requirements. Verbalizes understanding. Ordered: PM Inj Spine L/S With Imaging [id number] 2. DDD (degenerative disc disease), lumbar Ordered: PM Inj Spine L/S With Imaging [id number] 3. Right lumbar radiculopathy Increased severity since last visit. Ordered: PM Inj Spine L/S With Imaging [id number] 4. Fibromyalgia Patient states PCP would prefer we take over prescriptions for fibromyalgia. Discontinue Savella due to side effects. Trial Cymbalta 30 mg at bedtime. If tolerating increase to 60 mg. Risk, side effects and benefits of this medication were discussed. Continue Lyrica and etodolac. She will continue receiving these 2 medications from other providers. Ordered: PM Inj Spine L/S With Imaging [id number] Orders: DULoxetine, Dose : 30 mg = 1 cap(s), Oral, qDay, fill date 06/15/2022, # 30 cap(s), 0 Refill(s), Pharmacy: [facility]/pharmacy #[id number], 162.6, cm, 06/15/22 7:57:00 EDT, Height Problem List/Past Medical History Ongoing Abnormal finding on radiology exam Arthritis DDD (degenerative disc disease), lumbar Essential hypertension Fibromyalgia Hypothyroidism Lumbar stenosis with neurogenic claudication Morbid obesity with BMI of 40.0-44.9, adult Multiple joint pain Primary osteoarthritis of left knee Right lumbar radiculopathy Historical Pre-op evaluation Screening for lipid disorders Procedure/Surgical History Total knee replacement: 03/2017 Rotator cuff repair Total hysterectomy delivery Carpal tunnel release Dilatation and curettage Laparoscopy Foot Allergies NKA [1] [1] Specialty Office Visit Note; SIOBHAN PENDLETON APRN-CHERRY SORTER 06/15/2022 08:29 EDT Digitally Signed by EDGARDO BARR MD on 06/22/2022 08:[address] [facility] 05-05-2022 Hospital Discharge instructions Patient Education 05/05/2022 07:29:14 Epidural Steroid Injection, Care After Epidural Steroid Injection, Care After Refer to this sheet in the next few weeks. These instructions provide you with information about caring for yourself after your procedure. Your health care provider may also give you more specific instructions. Your treatment has been planned according to current medical practices, but problems sometimes occur. Call your health care provider if you have any problems or questions after your procedure. What can I expect after the procedure? After your procedure, it is common to feel a little discomfort at the injection site. Follow these instructions at home: For 24 hours after the procedure: ?Avoid using heat on the injection site. ?Do not take a tub bath, and do not soak in water. ?Do not drive if you received a medicine to help you relax (sedative). If directed, put ice on the injection site: ?Put ice in a plastic bag. ?Place a towel between your skin and the bag. ?Leave the ice on for 20 minutes, 2 3 times a day. Return to your normal activities as told by your health care provider. Ask your health care provider what activities are safe for you. You may remove the bandage (dressing) after 24 hours. Take ozpg-huj-jaiwtnb and prescription medicines only as told by your health care provider. Keep all follow-up visits as told by your health care provider. This is important. Contact a health care provider if: You have a fever. You continue to have pain and soreness around the injection site, even after taking dsdz-mrf-imzadff pain medicine. You have severe, sudden, or lasting nausea or vomiting. Get help right away if: You have severe pain at the injection site that is not relieved by medicines. You develop a severe headache or a stiff neck. You become sensitive to light. You have any new numbness or weakness in your legs or arms. You lose control of your bladder or bowel movements. You have trouble breathing. This information is not intended to replace advice given to you by your health care provider. Make sure you discuss any questions you have with your health care provider. Document Released: 02/07/2012 Document Revised: 10/05/2018 Document Reviewed: 02/07/2017 [employer] Patient Education [address] [employer] [facility] 05-05-2022 Summary of episode note Discharge Instructions Thank you for allowing [facility] to assist you with your healthcare needs. The following is important discharge information regarding your hospital visit. Your Care Team CONSTANZA FLOWER DO Your Diagnosis Lumbar stenosis with neurogenic claudication Fibromyalgia Morbid obesity with BMI of 40.0-44.9, adult Multiple joint pain Medications Please ask your primary doctor or pharmacist before taking any other medication not listed, including over the counter drugs, herbal medications, vitamins and or supplements as they may interact with your home medications. What How Much When Why Instructions Last Dose Unchanged bisoprolol-hydrochlorothiazide (bisoprolol-hydrochlorothiazide 5 - 6.25 mg oral tablet) 1 tab(s) by mouth Once a day (in the evening) Essential hypertension Unchanged etodolac (etodolac 400 mg oral tablet) 1 tab(s) by mouth Two (2) times a day Unchanged levothyroxine (Synthroid 75 mcg (0.075 mg) oral tablet) See instructions TAKE 1/ 2 TABLET MONDAY AND MONDAY & 1 TABLET ON THE OTHER DAYS OF THE WEEK Unchanged milnacipran (Savella 50 mg oral tablet) 1 tab(s) by mouth Two (2) times a day Fibromyalgia Unchanged pregabalin (Lyrica 150 mg oral capsule) 1 cap by mouth Three (3) times a day Fibromyalgia Duration: 90 Days Please take this list to your next doctor s visit. Bring all medications you take, including over the counter medications, herbals and other supplements with you to your doctor s visit. Patients and families are reminded to discard old lists and to update any records with all medication providers or retail pharmacies. Education Materials Epidural Steroid Injection, Care After Refer to this sheet in the next few weeks. These instructions provide you with information about caring for yourself after your procedure. Your health care provider may also give you more specific instructions. Your treatment has been planned according to current medical practices, but problems sometimes occur. Call your health care provider if you have any problems or questions after your procedure. What can I expect after the procedure? After your procedure, it is common to feel a little discomfort at the injection site. Follow these instructions at home: For 24 hours after the procedure: ? Avoid using heat on the injection site. ? Do not take a tub bath, and do not soak in water. ? Do not drive if you received a medicine to help you relax (sedative). If directed, put ice on the injection site: ? Put ice in a plastic bag. ? Place a towel between your skin and the bag. ? Leave the ice on for 20 minutes, 2 3 times a day. Return to your normal activities as told by your health care provider. Ask your health care provider what activities are safe for you. You may remove the bandage (dressing) after 24 hours. Take kvxk-dyh-bmjysxj and prescription medicines only as told by your health care provider. Keep all follow-up visits as told by your health care provider. This is important. Contact a health care provider if: You have a fever. You continue to have pain and soreness around the injection site, even after taking tubt-oao-hydswqt pain medicine. You have severe, sudden, or lasting nausea or vomiting. Get help right away if: You have severe pain at the injection site that is not relieved by medicines. You develop a severe headache or a stiff neck. You become sensitive to light. You have any new numbness or weakness in your legs or arms. You lose control of your bladder or bowel movements. You have trouble breathing. This information is not intended to replace advice given to you by your health care provider. Make sure you discuss any questions you have with your health care provider. Document Released: 02/07/2012 Document Revised: 10/05/2018 Document Reviewed: 02/07/2017 [employer] Patient Education 2020 [employer] Additional Information VACCINATE! IT SAVES LIVES! Members of the community who have not yet received the COVID-19 vaccine and would like to receive it can visit one of [facility] vaccine clinics. There are many vaccine clinic locations within the [facility]. For locations and available times, please visit [email or web address] [email or web address] It is important to note that some COVID mobile vaccine clinics are held outdoors and may be canceled in rainy or stormy conditions. To learn more about pediatric vaccinations (ages 5-11), we invite you to visit the [facility] webpage. [email or web address] To learn more about the COVID-19 vaccine, we invite you to visit the [facility] website for a list of frequently asked questions. [email or web address] [facility] Patient Portal Access Instructions: Stay connected with your healthcare team and access your personal medical information anytime with the [facility] Patient Portal.If you would like a full copy of your medical records, please contact the [facility] Medical Records Department, Monday through Monday between 8a.m. and 4:30p.m. Please follow the directions below to access the portal: 1.Access the email account you provided upon registration to the [facility].2.Look for an invitation email from [facility].3.Open the email and access the invitation link: Accept Invitation to [facility]4.Fill in the required pérez to create your account. Sign into [email or web address] with your username and password that you created in the above steps to stay up to date. You can then view a summary of results, a summary of your visits, and the ability to download your summaries to your computer or send the information securely to a physician. Remember that your healthcare information is confidential, so carefully consider who you will allow to register on the [facility] Patient Portal for access to your information. You can also access the [facility] Patient Portal on the [employer]. Simply click on Health Records under Health Data and then click on the [employer] logo. HOW TO SAFELY DISPOSE OF PRESCRIPTION MEDICATIONS Please use one of the following methods to safely dispose of your unused medications. 1.Use a drug disposal kit: the drug disposal pouch allows you to safely discard your old and unused drugs. Ask your nurse to give you one when you are discharged.2.Visit a local take-back location: Many local pharmacies and police departments have programs that collect old and unwanted prescription drugs. Call your local pharmacy or go to http://MaSpatule.com.Myrl/0N8Gu3m to find one close to you.3.Make use of household items: Use cat litter or old coffee grounds to dispose medications if other options are not available. Mix your drugs with these household products, seal them in an airtight container and throw it into the garbage. Call [facility]: [phone] to be sure your drugs can be disposed of in this way. Some medicines may require a different approach.4.Never flush your medications down the toilet. IF YOU HAVE BEEN PRESCRIBED AN OPIOID FOR PAIN If you have been prescribed an opioid (such as hydrocodone, oxycodone or morphine), it is critical to understand the possible side effects and risks of opioid pain medications. Even when taken as directed, opioids can have several side effects including: Tolerance, meaning you might need to take more of a medication for the same pain relief. Nausea, vomiting and/or constipation. Sleepiness, dizziness, dry mouth, confusion, depression or itching. Physical dependence, meaning you have withdrawal symptoms when a medication is stopped, can develop within a few days. KNOW YOUR RESPONSIBILITIES It is important to know exactly how much and how often to take the opioid pain medications you are prescribed. Never take opioids in higher amounts or more often than prescribed. Do not combine opioids with alcohol or other drugs that cause drowsiness, such as benzodiazepines, also known as benzos, including diazepam and alprazolam, muscle relaxants or sleep aids. Never sell or share prescription opioids. This is illegal. Store opioids in a secure place and out of reach of others (including children, family, friends and visitors). The last page of this document has been signed and retained as a CHART COPY. Signatures Patient Education Materials Epidural Steroid Injection, Care After Medication Leaflets My discharge plan and instructions have been reviewed and explained to me and I,OREN CARRASCO understand my current condition and have read and understand these discharge instructions. I have received a written copy of the plan/instructions. If I have questions, I am aware that I should contact my doctor. Patient/Probe Operator Signature: Date/Time: Relationship to Patient: Witness Name/Signature: Date/Time: [facility] 05-05-2022 History and physical note Date of Service May 05, 2022 History and Physical Update I have examined the patient; reviewed the History and Physical and there are no changes to the History and Physical unless noted below. History and Physical Chief Complaint C/o bilateral lower back, buttocks and bilateral leg pain. Pt states left side of lower back pain is worse. Pain of left leg goes down to her foot. History of Present Illness A pleasant 62-year-old female referred by Dr. Flanagan. Chief complaint of transverse back pain and left greater than right lower extremity pain and paresthesia that occurs when standing and walking. Ongoing symptoms since October 2021. Patient denies any preceding traumatic event but notes that she fell in the shower in July but that was a few months before the onset of symptoms. Patient says that she has always low back pain at the lumbosacral junction and throughout the lumbar region worse when standing and walking. Has variable degree of lower extremity pain and paresthesia lately left leg more than right radiates in the posterior gluteal region posterior thigh calf and lateral aspect of her left foot. Similar symptoms in the right gluteal posterior thigh and calf she says over the past few weeks the left leg has bothered her more than the right but the right leg has hurt more in the past at times. To summarize patient had initially chiropractic treatment with no help tried some acupuncture with no help recently saw Dr. Flanagan spine surgeon and MRI of lumbar spine was done which showed multilevel degenerative joint disc disease variable degree of stenosis at the L2-3 L3-4 level mild central stenosis at L4-5 and foraminal stenosis at multiple levels. There was some evidence of an anterior mass L2-4. That was followed up with contrast image that shows no evidence of abnormality in that area so it is presumed that that was an artifact. Patient then had physical therapy unfortunately did not help. She has tried multiple anti-inflammatory medications currently taking etodolac which may help some tried mbye-bvm-kwthxbq agents and diclofenac none of which helped much. She is followed for chronic fibromyalgia pain by primary care physician who prescribes pregabalin 150 mg 3 times daily and Savella. Patient says she has had cortisone injections in knees before her knee replacement has had no trouble with that. According to the surgeon she does not have a good surgical option so he recommended epidural steroid injections. I have reviewed the [place] Automated Rx Reporting System (OARRS) report for this patient for refill pattern and other prescriber involvement as part of the appropriate surveillance for the provision of acute and chronic controlled medications. The report was reviewed on the date of this entry, and was considered in the prescribing process. Patient is rating her pain today as a 6 out of 10 Review of Systems Constitutional: No fever, no weight loss, no weight gain Eyes: No vision loss, no blurred vision Ears, Nose, Mouth & Throat: No hearing loss, no throat pain, no difficulty swallowing Cardiovascular: No chest pain, no heart racing, no edema Respiratory: No cough, no shortness of breath Gastrointestinal: No nausea, no diarrhea, no constipation Genitourinary: No incontinence, positive urgency, no dysuria Musculoskeletal: No joint pain, no swelling Skin: No rash, no sores Neurological: No memory loss, no speech difficulties, no focal numbness, no focal weakness, no involuntary limb movements Psychiatric: No anxiety, no depression, no suicidal ideation Endocrine: No high blood sugars, no heat or cold intolerance Hematologic/Lymphatic: No easy bleeding, no easy clotting Sleep: Positive snoring, no insomnia, no daytime sleepiness, patient uses CPAP each night Physical Exam Vitals and Measurements HR: 76 RR: 16 BP: 139/84(Left Arm) SpO2: 99% HT: 162.6 cm WT: 116 kg BMI: 43.87 Oxygen Therapy: Room air Primary Pain Intensity: 6 (04/19/22 09:56:00) General Appearance: Alert no distress, well nourished HEENT : Normocephalic atraumatic Cardiac: Regular rate and rhythm. no peripheral edema Lungs: Clear throughout to auscultation, normal depth and rate Abdomen: Soft nontender, nondistended, normal active bowel sounds Musculoskeletal: No calf pain to compression, functional ROM of cervical spine upper extremity joints. Mild limitation of lumbar extension. Minimal tenderness palpation lumbar paraspinals no significant greater trochanteric pain. Hip motion is normal bilaterally. History of bilateral knee replacements as noted functional range of motion. 2+ distal pulses x4 limbs Neurological: Alert, speech fluent, cognition good, 2+ upper and lower extremity reflexes throughout. Reports intact sensation major dermatomes L3-S1 both lower extremities. Motor power normal with manual muscle testing. Gait antalgic more so with left weightbearing Skin: No rash Psychiatric: No significant anxiety or depression Imaging Results and Diagnostics (01/04/2022 15:05 EST MRI Spine Lumbar w/o Contrast) ORIGINAL EXAMINATION: MRI OF THE LUMBAR SPINE WITHOUT CONTRAST TECHNIQUE: MRI examination of the lumbar spine was obtained utilizing the following sequences: Sagittal and axial T1-weighted, sagittal and axial T2-weighted, and sagittal STIR images COMPARISON: lumbar spine 11/17/2021 HISTORY: ORDERING SYSTEM PROVIDED HISTORY: Reason for Exam: LBP AND RLE RADICULOPATHY. SCLEROTIC LESIONS L3 AND L4 FINDINGS: Segmentation: For this report, the last well formed disc is labeled L5-S1. Alignment: Trace retrolisthesis of L1 on L2 and L2 on L3. Trace degenerative anterolisthesis of L5 on S1. A mild rotary dextroscoliosis centered about the L3 vertebral body is present. Vertebral bodies: No acute/recent or chronic fracture. Prominent left side bridging degenerative enthesopathy changes involve L2-L3. Type 2 discogenic endplate degenerative changes involve L1-L2 and L2-L3. Persistent hypointense structures on all sequences involve the right half of the L3 and L4 vertebral bodies corresponding to sclerotic lesions on CT examination of reference. Bone marrow: Normal. Distal cord and conus: Normal. The conus terminates at L1. Cauda equina: Normal. Discs: Moderately severe disc height loss at the L1-L2 and L2-L3 levels with mild height loss at L5-S1. Widespread disc desiccation involves each lumbar level. Additional comments: A hypointense structure on T2 weighted images within the anterior thecal sac is identified at the inferior L2 through superior L4 levels only seen on axial images. Well this finding may reflect artifact postcontrast axial and sagittal images are recommended for further evaluation. T12-L1: The central canal and foramina are adequately patent. L1-L2 : A circumferential disc bulge without herniation is demonstrated. Mild bilateral facet arthropathy. The foramina and central canal are adequately patent. L2-L3 : A small circumferential disc bulge, trace retrolisthesis, ligamentum flavum hypertrophy and mild facet arthropathy causes moderate left and mild right foraminal narrowing. L3-L4 : A circumferential disc bulge, ligamentum flavum hypertrophy and moderate facet joint arthropathy causes mild central canal stenosis and mild right foraminal narrowing. L4-L5 :An asymmetric right extraforaminal disc bulge in combination with moderate right and mild left facet arthropathy causes mild right foraminal narrowing. L5-S1 : An asymmetric right foraminal and extraforaminal disc bulge and moderate facet arthropathy causes tgsn-yo-ykhjvovv right foraminal narrowing. The central canal and left foramen are adequately patent. Paraspinal musculature: Normal. Visualized abdomen and pelvis: Normal. Additional comment: None. IMPRESSION: 1. Hypointense structure on T2 weighted sequences within the anterior thecal sac at the inferior L2 through superior L4 levels only seen on axial images. This finding may reflect artifact however postcontrast MRI sagittal and axial images are recommended. 2. Indeterminate sclerotic lesions within the right halves of the L3 and L4 vertebral bodies which could also be further assessed with postcontrast MRI. 3. L2-L3: Moderate left foraminal narrowing. 4. L3-L4: Mild central canal stenosis. 5. L5-S1: Mild to moderate right foraminal narrowing. Communication was initiated for the radiology call center by this radiologist through PACS at 9:54 a.m. on 01/05/2022with instructions to provide the results of this examination to a licensed caregiver. Interpreted by: Constanza Marie MD Preliminary Report By: Constanza Marie MD Electronically signed By Constanza Marie MD Dictated Date: 01/05/2022 9:36:01 AM [1] Social History Alcohol Use: Never., 06/06/2019 Employment/School Status: Employed., 12/09/2019 Exercise Home/Environment Domestic Concerns: None. Living situation: Home/Independent. 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 Lives In: Multilevel home. Current Home Treatments CPAP. Professional Skilled Services or Special Community Resources None., 03/26/2020 Nutrition/Health Type of diet: Regular. Appetite Good. Eating Difficulties None. Caffeine intake amount: Carbonated beverage- 3 servings/day., 03/26/2020 Substance Abuse Use: Never., 06/06/2019 Tobacco Tobacco Use: Never (less than 100 in lifetime), No smoke or tobacco exposure., 06/06/2019 Family History Alzheimer's disease: Mother. Heart disease: Father. Hypertension: Mother. Assessment/Plan 1. Morbid obesity with BMI of 40.0-44.9, adult Ordered: PM Inj Spine L/S With Imaging 86831 2. Lumbar stenosis with neurogenic claudication Multilevel lumbar spinal canal stenosis predominantly foraminal stenosis. Patient signs and symptoms are consistent with spinal stenosis with neurogenic claudication. As above has had numerous trials of conservative treatment without benefit including acupuncture, chiropractic, and recently physical therapy. Has had appropriate images of her lumbar spine and reviewed by spine surgeon who recommends nonsurgical treatment. I reviewed the details of epidural steroid injection with patient this will be done under fluoroscopy. She is in favor of this so she can arrange a industrial tractor driver. Reviewed preprocedural instructions with her. She says she would strongly wish for the injection to be done prior to the end of the month because her new insurance year starts May 06. The only agent she will need to stop before the procedure for 5 days is the etodolac so hopefully we can get her in within a couple of weeks. Regarding her body habitus likely a 20-gauge 6 inch Touhy needle will be needed. We will target the left L4-5 space. Ordered: PM Inj Spine L/S With Imaging [id number] 3. DDD (degenerative disc disease), lumbar Ordered: PM Inj Spine L/S With Imaging [id number] 4. Fibromyalgia This has been treated by primary care physician recommend that she continue pregabalin and Savella unchanged. Also continue ventilation support with CPAP each night. Ordered: PM Inj Spine L/S With Imaging [id number] Problem List/Past Medical History Ongoing Abnormal finding on radiology exam Arthritis DDD (degenerative disc disease), lumbar Essential hypertension Fibromyalgia Hypothyroidism Lumbar stenosis with neurogenic claudication Morbid obesity with BMI of 40.0-44.9, adult Multiple joint pain Primary osteoarthritis of left knee Right lumbar radiculopathy Historical Pre-op evaluation Screening for lipid disorders Procedure/Surgical History Total knee replacement: 03/2017 Foot Rotator cuff repair Total hysterectomy delivery Carpal tunnel release Dilatation and curettage Laparoscopy Allergies NKA [1] [1] Specialty Office Visit Note; EDGARDO BARR MD 04/19/2022 10:51 EDT Digitally Signed by EDGARDO BARR MD on 05/05/2022 07:[address] [facility] Evaluation + Plan note Future Appointments Appointment Date:12/24/2021 03:00:00 PM Scheduled Provider:CONSTANZA FLOWER DO Location:[facility] Appointment Type: [facility] Evaluation + Plan note Future Appointments Appointment Date:12/24/2021 03:00:00 PM Scheduled Provider:CONSTANZA FLOWER DO Location:[facility] [facility] Appointment Type: OV Future Scheduled TestsXR Spine Lumbar W/Obliques 4 Views 11/16/21 [facility] Evaluation + Plan note Future Appointments Appointment Date:01/25/2022 04:00:00 PM Scheduled Provider:CONSTANZA FLOWER DO Location:[facility] Appointment Type: OV Follow Up Future Scheduled TestsXR Spine Lumbar W/Obliques 4 Views 11/16/21 [facility] Evaluation + Plan note Future Appointments Appointment Date:01/25/2022 04:00:00 PM Scheduled Provider:CONSTANZA FLOWER DO Location:[facility] Appointment Type:PC OV Follow Up Future Scheduled TestsCreatinine 3/2/22XR Spine Lumbar W/Obliques 4 Views 11/16/21 [facility] Evaluation + Plan note Future Appointments Appointment Date:02/22/2022 03:15:00 PM Scheduled Provider:CONSTANZA FLOWER DO Location:[facility] Appointment Type:PC OV Future Scheduled TestsCreatinine 3/2/22XR Spine Lumbar W/Obliques 4 Views 11/16/21 [facility] Evaluation + Plan note Future Appointments Appointment Date:05/05/2022 07:00:00 AM Scheduled Provider: Location:[facility] [place] Appointment Type:PM Inj Spine L/S With Imaging Future Scheduled TestsCreatinine 3/2/22XR Spine Lumbar W/Obliques 4 Views 11/16/21 [facility] Evaluation + Plan note Future Appointments Appointment Date:06/15/2022 08:00:00 AM Scheduled Provider:SIOBHAN PENDLETON Location:PM Office Appointment Type:PM OV KEERTHI WDavidW Future Scheduled TestsCreatinine 3/2/22XR Spine Lumbar W/Obliques 4 Views 11/16/21 [facility] Evaluation + Plan note Future Appointments Appointment Date:07/29/2022 02:30:00 PM Scheduled Provider:SIOBHAN PENDLETON Location:PM Office Appointment Type:PM OV KEERTHI WJW Future Scheduled TestsCreatinine 3/2/22XR Spine Lumbar W/Obliques 4 Views 11/16/21 [facility] Evaluation + Plan note Future Appointments Appointment Date:08/10/2022 08:30:00 AM Scheduled Provider: Location:[facility] [place] Appointment Type:PM Inj Spine L/S With Imaging Appointment Date:01/05/2023 02:30:00 PM Scheduled Provider:CONSTANZA FLOWER DO Location:[facility] Appointment Type:PC OV Future Scheduled TestsCreatinine 3//XR Spine Lumbar W/Obliques 4 Views 11/16/21 [facility] Evaluation + Plan note Future Appointments Appointment Date:01/05/2023 02:30:00 PM Scheduled Provider:CONSTANZA FLOWER DO Location:[facility] Appointment Type:PC OV Future Scheduled TestsCreatinine 3/12/28XR Spine Lumbar W/Obliques 4 Views 11/16/21 [facility] Evaluation + Plan note Future Appointments Appointment Date:11/21/2022 10:00:00 AM Scheduled Provider:EDGARDO BARR MD Location:PM Office Appointment Type:PM OV Appointment Date:01/05/2023 02:30:00 PM Scheduled Provider:CONSTANZA FLOWER DO Location:[facility] Appointment Type:PC OV Future Scheduled TestsCreatinine 3//XR Spine Lumbar W/Obliques 4 Views 11/16/21 [facility] Evaluation + Plan note Future Appointments Appointment Date:12/06/2022 02:00:00 PM Scheduled Provider:CONSTANZA FLOWER DO Location:[facility] Appointment Type:PC OV Appointment Date:12/07/2022 03:15:00 PM Scheduled Provider: Location:[facility] Appointment Type:MRI Spine Cervical w/o Contrast Appointment Date:12/16/2022 07:00:00 AM Scheduled Provider:EDGARDO BARR MD Location:PM Office Appointment Type:PM OV Appointment Date:01/05/2023 02:30:00 PM Scheduled Provider:CONSTANZA FLOWER DO [facility] Appointment Type:PC OV Future Scheduled TestsCreatinine /12/28MRI Spine Cervical w/o Contrast 12/07/22 [facility] Evaluation + Plan note Future Appointments Appointment Date:12/16/2022 07:00:00 AM Scheduled Provider:EDGARDO BARR MD Location:PM Office Appointment Type:PM OV Appointment Date:01/05/2023 02:30:00 PM Scheduled Provider:CONSTANZA FLOWER DO Location:[facility] Appointment Type:PC OV Appointment Date:01/09/2023 03:00:00 PM Scheduled Provider:CONSTANZA FLOWER DO Location:[facility] Appointment Type:PC OV Future Scheduled TestsCreatinine 3/2/22Microalbumin Level Urine 12/06/22 [facility] Evaluation + Plan note Future Appointments Appointment Date:01/05/2023 02:30:00 PM Scheduled Provider:CONSTANZA FLOWER DO Location:[facility] Appointment Type:PC OV Appointment Date:01/09/2023 03:00:00 PM Scheduled Provider:CONSTANZA FLOWER DO Location[facility] Appointment Type:PC OV Appointment Date:02/14/2023 07:00:00 AM Scheduled Provider:EDGARDO BARR MD Location:PM Office Appointment Type:PM OV Future Scheduled TestsCreatinine 3/2/22Microalbumin Level Urine 12/06/22 [facility] documented in this encounter [facility] course Narrative No data available for this section [facility] Discharge instructions No data available for this section [facility] Progress note No data available for this section [facility] reason for referral (narrative)* Outpatient Procedure (Routine) - Authorized Specialty Diagnoses / Procedures Referred By Contac t Referred To Contact [facility] Diagnoses Positive colorectal cancer screening using Cologuard test Procedures COLONOSCOPY DIAGNOSTIC COLONOSCOPY FLX DX W/COLLJ SPEC WHEN PFRMRashida Quintana MD [address] [facility] [place] [address] [facility] [address] [place] [id number] Referral ID Status Reason Start Date Expiration Date Visits Requested Visits Authorized [id number] Authorized Auto-Generat ed Referral 3 10/03/2024 1 1 [facility] Summary Purpose Family History No Family History Records FoundNo Family History Records FoundNo Family History Records Found Advance Directives No Advanced Directives Records FoundDocuments on File Type Date Recorded 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 Expl anation Advance Directives and Living Will 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 Additional Source Comments INFORMATION SOURCE (unrecogn ized section and content) DATE CREATED AUTHOR AUTHOR'S ORGANIZ ATION 10/09/2023 [facility] DATE CREATED AUTHOR AUTHOR'S ORGANIZ ATION 11/08/2023 [facility] ([place]) Care Team (unrecognized sect ion and content) Care Team (unrecognized sect ion and content) Care Team Personnel Name: CONSTANZA FLOWER DO Position: P4 Physician - Primary Care Med Service: Active Provider Member Role: Primary Care Physician Address: Address: [address] [place] [address] Care Team Related Persons Name: HAWK, BLENDA Care Team Personnel Name: CONSTANZA FLOWER DO Position: P4 Physician - Primary Care Med Service: Active Provider Member Role: Primary Care Physician Address: Address: [address] [place] [address] Care Team Related Persons Name: HAWK, BLENDA Care Team Personnel Name: CONSTANZA FLOWER DO Position: P4 Physician - Primary Care Med Service: Active Provider Member Role: Primary Care Physician Address: Address: [address] [place] [address] Care Team Related Persons Name: HAWK, BLENDA Care Team Personnel Name: CONSTANZA FLOWER DO Position: P4 Physician - Primary Care Med Service: Active Provider Member Role: Primary Care Physician Address: Address: [address] [place] [address] Care Team Related Persons Name: HAWK, BLENDA Care Team Personnel Name: CONSTANZA FLOWER DO Position: P4 Physician - Primary Care Member Role: Primary Care Physician Address: Address: [address] [place] [address] Care Team Related Persons Name: HAWK, BLENDA Care Team Personnel Name: CONSTANZA FLOWER DO Position: P4 Physician - Primary Care Member Role: Primary Care Physician Address: Address: [address] [place] [address] Care Team Related Persons Name: HAWK, BLENDA Care Team Personnel Name: TEDDY, CONSTANZA DO Position: P4 Physician - Primary Care Member Role: Primary Care Physician Address: Address: [address] [place] [address] Care Team Related Persons Name: NORMA HAWK Care Team Personnel Name: CONSTANZA FLOWER DO Position: P4 Physician - Primary Care Member Role: Primary Care Physician Address: Address: [address] [place] [address] Care Team Related Persons Name: NORMA HAWK Care Team Personnel Name: CONSTANZA FLOWER DO Position: P4 Physician - Primary Care Member Role: Primary Care Physician Address: Address: [address] [place] [address] Care Team Related Persons Name: NORMA HAWK Source Comments (unrecognize d section and content) In the event this informatio n is protected by the Federal Confidentiality of Alcohol and Drug Abuse Patient Records regulations: The Federal rules restrict any use of the information to criminally investigate or prosecute any alcohol or drug abuse patient.[facility] Reason for Visit (unrecogniz ed section and content) FOR RECORDS PERTAINING TO PATIENTS WHO ARE OR HAVE BEEN ENROLLED IN A CHEMICAL DEPENDENCY/SUBSTANCEABUSE PROGRAM, SOME INFORMATION MAY BE OMITTED. This clinical summary was aggregated from multiple sources. Caution should be exercised in using it in the provision of clinical care. This summary normalizes information from multiple sources, and as a consequence, information in this document may materially change the coding, format and clinical context of patient data. In addition, data may be omitted in some cases. CLINICAL DECISIONS SHOULD BE BASED ON THE PRIMARY CLINICAL RECORDS. [employer] provides no warranty or guarantee of the accuracy or completeness of information in this document.
== END | disposition home or self-care (01) ==
LOC: MRI 13:49
PROVIDERS: PCP Preventive Medicine Occupational Medicine; Referring Provider Clinical Nurse Specialist Adult Health; Visit Provider Clinical Nurse Specialist Adult Health
DX: M48.061 Spinal stenosis, lumbar region without neurogenic claudication (principal); M51.36 Other intervertebral disc degeneration, lumbar region
CPT/HCPCS: 72148

== ENCOUNTER → 2024-01-26 | Outpatient (CLI) | payer OTHER, SELFPAY ==
[2024-01-26 17:17] LABS: Absolute Lymphocyte Count 2.34 X10^3/uL (0.83-4.51); Absolute Neutrophil Count 4.5 X10^3/uL (2.0-7.7); Basophil# 0.07 X10^3/uL; Basophil% 0.9 % (0-1); Eosinophil# 0.16 X10^3/uL; Eosinophils% 2.1 % (0-5); Hematocrit 41.2 % (37-47); Hemoglobin 13.9 g/dL (12.0-15.0); Lymphocyte # 2.34 X10^3/ul (0.83-4.51); Lymphocyte % 30.6 % (19-41); Mean Corp Hgb Conc 33.7 g/dL (32-36); Mean Corpuscular Hgb 31.1 pg (27.0-32.0); Mean Corpuscular Volume 92.2 fL (81-99); Mean Platelet Vol. 10.6 fl (6.2-12.0); Monocyte# 0.54 X10^3/uL; Monocyte% 7.1 % (0-10); NRBC Flagged by Analyzer 0 % (0-5); Neutrophil # 4.52 X10^3/uL (2.7-7.7); Platelet Count 325 K/mm3 (150-450); RBC Distribution Width CV 13.6 % (11.6-14.6); RBC Distribution Width SD 46.3 fl (35.1-43.9); Red Blood Count 4.47 M/mm3 (4.2-5.4); White Blood Count 7.7 K/mm3 (4.4-11.0)
[2024-01-26 17:28] LABS: Erythrocyte Sedimentation Rate 11 mm/hr (0-30)
[2024-01-26 17:34] LABS: CRP 9.98 mg/L (0.0-3.0)
== END | disposition home or self-care (01) ==
LOC: LAB 16:59
PROVIDERS: PCP Preventive Medicine Occupational Medicine; Referring Provider Specialist; Visit Provider Specialist
DX: T84.84XA Pain due to internal orthopedic prosthetic devices, implants and grafts, initial encounter (principal)
CPT/HCPCS: 36415; 85025; 85652; 86140

== ENCOUNTER 2024-07-05 15:30 | Outpatient (RCR) | payer OTHER, SELFPAY ==
--- NOTE | 2024-06-06 10:45 | HP.PTEVAL_ITS ---
Patient's Visit Information Visit Information Visit Information: OREN RIOS is a 64 year old F referred to Physical Therapy by Dr. Oleg Omer MD with a diagnosis of R knee primary OA, pain. Date of Evaluation: 06/06/24 Physical Therapist: Rick Oro, DPT, OCS, CSCS Visit Plan Frequency: 3x /Week Duration: 4-6 Weeks Plan: 3x/week for 4-6 for pool based core, LE strength, HS and quad stretching and general ex and calorie burning and progressing to I pool program as member. LB ROM Subjective Subjective: R knee hurting for long time over 6 yrs, TKA in 2017 but has had pain since. It hurts R anterior knee. May drag R foot b./c she tripped on it and fell the other day. She says doctor thinks it will need another TKA but hoping to wait two years. Sleep is interrupted sometimes but moreso due to back as she has back pain, she has spinal stenosis and HNP. Numbness and tingly in B lateral upper legs most of time. Also feels weakin R LE. Sees ortho doctor for back and is in pain management. Spinal injections every two months. may get nerve stimulator. 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 Worse after work. Exercises: no Hobbies: reading and quilting. limited quilting to one hour 2x/day b/c sitting is limited due to back. Basic ADLs: all I. Has steps and avoids using them due to a fall a long time ago. Pain R knee: Pain Intensity (Out of 10): 2 Pain Intensity Range: 2 and 6 Comment: quad also, better with pain pill, Objective Objective: R knee max sensitive anteriorly over incision. Patella are stiff B. AROM r knee 0-105 limited by pain, PROM 115. L knee 0-125, SLR without lag B. LB AROM ext painfree, flexion mod limited and very painful, SB are good. hip PROM WFL and without pain. HS mod tight at -25 90/90, quads mod tight. + r knee scouring. ankel aROM WFL reflexes 2/3 patella and achilles B sensation LE WNL to gross light touch. strength: 4 ankles without pain, 4- knee ext and flexion, some Pain R knee ext, hip abd 3+ and ext 3 and flexion 3, these hurt her back more than her leg. Balance/Special Test Scores Lower Extremity Functional Score: 34 Goals Goal 1:: I appropriate pool program to manage future symptoms and strength Goal Time Frame: 4-6 Weeks Goal 2:: Pain 3/10 at worst adn 50% better overall. Goal Time Frame: 4-6 Weeks Goal 3:: sleep without interruption due to pain Goal Time Frame: 4-6 Weeks Goal 4:: LEFS score 48 Goal Time Frame: 4-6 Weeks Rehabilitation Potential Physical Therapy Diagnosis: pain and weakness limiting QOL, poorly managed. Rehabilitation Potential: Fair Anticipated Interventions Patient/Client Instruction: Educate patient on: Condition and Plan of Care For the Purpose of:: To decrease pain, To increase ROM, To improve nutrient delivery to tissue, To improve muscle performance and motor function and To increase tolerance to activity/condition/position Therapeutic Exercise to Include: Strength training, Postural training, In an aquatic setting, Passive ROM, Active ROM and Dynamic Lumbar Stabilization For the Purpose of:: To decrease pain, To increase ROM, To improve nutrient delivery to tissue, To improve muscle performance and motor function and To increase tolerance to activity/condition/position Text: Thank you for the opportunity to evaluate your patient. For Medicare and Medicare HMO plans, please review the plan of care and approve it. It will need to be FAXED BACK to us at [phone] for Medicare purposes. For Medicare only, by signing this I certify the plan of care. Please let me know if there are questions or concerns regarding this plan of care. Physician Signature: Date:
--- NOTE | 2024-07-05 16:02 | HP.PTDCSUM ---
Discharge Summary D/C summary: It has been my pleasure to treat OREN RIOS referred by Dr. Oleg Omer MD, with the diagnosis of R knee primary OA, pain for a total of 11 visit(s). Discharge Date: 07/05/24 Please see the following information for a summary of their discharge status. Subjective Subjective: L LB and side hurt for three days , unsure of why. R knee hurts now and then but much better. To [facility] in 3 weeks. Will see Garret next week for back. H/o back problems and spinal injection from [facility]. L leg is typical pain form her back and injections help. Pool may have helped a little bit. Needs knew TKA on R and wants it. Doing HEP except last three days.Just went back to work and stands all day. Pain R knee: Pain Intensity (Out of 10): 0 BACK: Pain Intensity (Out of 10): 5 Overall Improvement % Improvement: 60 Objective Objective/Function: Walks with l antalgia today and frustrated with L leg pain from LB, will See Dr. Combs next weeka dn Dr. Umanzor the week afteer. Moving R knee without pain today. Trasnfers and sits I but L leg bothersome. strength B LE 4-/5 knee adn ankles 4/5. Goals Goal 1:: I appropriate pool program to manage future symptoms and strength Goal Progress: Goal Met Goal 2:: Pain 3/10 at worst adn 50% better overall. Goal Progress: knee met. Goal 3:: sleep without interruption due to pain Goal Progress: met with knee, 2 with ambreen Goal 4:: LEFS score 48 Goal Progress: L leg limits Plan Plan: d/c to I pool program, pt may wait to joint until see back doctor for options with back and L leg pain D/C Information d/c sentence: If there are questions or concerns regarding this patient's physical therapy, please feel free to call me at [phone]. Thank you for the referral of this patient. Sincerely, Rick Oro, DPT, OCS, CSCS Balance/Gait/Functional tests Balance/Special Test Scores Lower Extremity Functional Score: 21 Improvement % Improvement: 60
== END 2024-07-05 19:00 | disposition home or self-care (01) ==
LOC: PT 15:30
PROVIDERS: PCP Preventive Medicine Occupational Medicine; Referring Provider Specialist; Visit Provider Specialist
DX: T84.84XD Pain due to internal orthopedic prosthetic devices, implants and grafts, subsequent encounter (principal); M17.11 Unilateral primary osteoarthritis, right knee; Z96.651 Presence of right artificial knee joint
CPT/HCPCS: 97113; 97162; 97164

== ENCOUNTER 2024-10-23 14:30 | Outpatient (RCR) | payer OTHER, SELFPAY ==
--- NOTE | 2024-09-18 15:14 | HP.PTEVAL_ITS ---
Patient's Visit Information Visit Information Visit Information: OREN RIOS is a 64 year old F referred to Physical Therapy by Dr. Deion Combs MD with a diagnosis of meralgia paraesthetica.. Date of Evaluation: 09/18/24 Physical Therapist: Rick Oro, DPT, OCS, CSCS Visit Plan Frequency: 2x /Week Duration: 4-6 Weeks Plan: 2x/week for 4-6(start 3)... Pt given pelvic tilt for LB and pelvic ROM often today sitting and lying and standing when painful. Please treat with: 1. MH and US to L distal SI area and soft tissue 2. STM to same desensitization, rollout quads and stretch quads, LB ROM, Do these each session 3. core NS strength and hip stabs into LE as tolerated. Subjective Subjective: Was in PT for knee earlier in the year but has Pain in LB and into butt adn around to quads burning stabbing and pins and needles intermittently L >R. Worse with standing in one place, getting in and out of car, climbing ladders. Feels better in recliner and leaning back. Can sit down a bit at work but cannot sit too long. Still doing knee exercises. No more water exercises as she does not have time to come in the evenings and does not feel like doing that in the evenings. Can't do cold pool due to FM. Symptoms stay at top of legs and has been there for 3 yrs including 3 yrs injections which help but not for long. This last one helped as it was August 15 and helped for 3 weeks but now back to painful.Sleeping is interrupted mostly when she moves and has to sleep with pillows under legs. 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 At work avoids lifting things off floor. Avoids sweeping adn mopping. Sits alot to cut vegetables At home: Rest, no activties.Knee ex lying in bed Basic ADLs: dressing bathroom all I. Steps at home are hard to lift L leg up. Could do all this well after the injection. Pain LB and legs: Pain Intensity (Out of 10): 4 Pain Intensity Range: 0 and 6 Comment: jolting is worse on rough roads. Objective Objective: Walks slowly and with short steps back to PT, hesitant to move quickly but I, slightly hunched over. Transition out of chair is with UE and painful but I. rolling and to supine and fro supine is painful and slow and hesitant but I. LB AROM ext painful and min limited, flexion painful L SI area, SB without pain. max tender L SI soft tissue in distal paraspinals and into ligaments as it connects with gluts and hip stabs. PA mildly tender in lower lumbar spine. reflexes 2/3 patella and achilles Sensation WNL to mary kay slight touch B LE. strength in hips ext and abd 3-, flexion 3 B knee flexion and extension 3+ B with pain L HSC in LB area. ankles 3+ without pain. Unstable core with hip testing sitting. Balance/Special Test Scores Lower Extremity Functional Score: 22 Goals Goal 1:: Pain 2/10 in LB at worst nad 75% better overall Goal Time Frame: 4-6 Weeks Goal 2:: Transition to supine and roll without hesitation due to pain, sit to stand without hesitation Goal Time Frame: 4-6 Weeks Goal 3:: I appropriate HEP for quad stretch , LB ROM, NS and core strength Goal Time Frame: 4-6 Weeks Goal 4:: LEFS 45 Goal Time Frame: 4-6 Weeks Goal 5:: Sleep without waking at night due to pain. Goal Time Frame: 4-6 Weeks Rehabilitation Potential Physical Therapy Diagnosis: limited ROm tenderness and weakness in core limiting functiona nd causing pain with activities. Rehabilitation Potential: Questionable Anticipated Interventions Patient/Client Instruction: Educate patient on: Condition and Plan of Care For the Purpose of:: To decrease pain, To increase ROM, To improve nutrient delivery to tissue, To improve muscle performance and motor function and To increase tolerance to activity/condition/position Therapeutic Exercise to Include: Strength training, Flexibilty training, Passive ROM, Active ROM and Dynamic Lumbar Stabilization For the Purpose of:: To decrease pain, To increase ROM, To improve nutrient delivery to tissue, To improve muscle performance and motor function, To increase tolerance to activity/condition/position and To improve gait and locomotor functions Manual Therapy Techniques to Include: Petrissage, Trigger point massage, Passive ROM and Soft tissue mobilization For the Purpose of:: To decrease pain, To improve nutrient delivery to tissue and To improve muscle performance and motor function Ultrasound (thermal/non thermal): Yes (thermal) For the Purpose of:: To decrease pain, To increase ROM and To improve nutrient delivery to tissue Text: Thank you for the opportunity to evaluate your patient. For Medicare and Medicare HMO plans, please review the plan of care and approve it. It will need to be FAXED BACK to us at [phone] for Medicare purposes. For Medicare only, by signing this I certify the plan of care. Please let me know if there are questions or concerns regarding this plan of care. Physician Signature: Date:
--- NOTE | 2024-12-23 13:38 | HP.PT.NRP ---
Patient Information Patient Information: OREN RIOS was seen in my office for initial evaluation on 09/18/24. The following Plan of Care was established for this patient: POC Established Initial Frequency: 2x /Week Initial Duration: 4-6 Weeks Anticipated Interventions Patient/Client Instruction: Educate patient on: Condition and Plan of Care For the Purpose of:: To decrease pain, To increase ROM, To improve nutrient delivery to tissue, To improve muscle performance and motor function and To increase tolerance to activity/condition/position Therapeutic Exercise to Include: Strength training, Flexibilty training, Passive ROM, Active ROM and Dynamic Lumbar Stabilization For the Purpose of:: To decrease pain, To increase ROM, To improve nutrient delivery to tissue, To improve muscle performance and motor function, To increase tolerance to activity/condition/position and To improve gait and locomotor functions Manual Therapy Techniques to Include: Petrissage, Trigger point massage, Passive ROM and Soft tissue mobilization For the Purpose of:: To decrease pain, To improve nutrient delivery to tissue and To improve muscle performance and motor function Ultrasound (thermal/non thermal): Yes (thermal) For the Purpose of:: To decrease pain, To increase ROM and To improve nutrient delivery to tissue Last Seen Last Seen: This patient was last seen in our office 10/23/24. Pertinent comments regarding their Physical therapy will appear below: Pt seen 10 visits of POC but did not show for her re-assessment. We called to leave a message but did not hear back. At this point, it has been over 6 weeks and I will discontinue due to nonattendance. At this point I will be discontinuing this patient from physical therapy. I would be happy to see this patient again in the future if found appropriate by the physician. Thank you! Rick Oro, DPT, OCS, CSCS Balance/Gait/Functional tests Balance/Special Test Scores Lower Extremity Functional Score: 30
== END 2024-10-23 19:00 | disposition home or self-care (01) ==
LOC: PT 14:30
PROVIDERS: PCP Preventive Medicine Occupational Medicine; Referring Provider Orthopaedic Surgery Orthopaedic Surgery of the Spine; Visit Provider Orthopaedic Surgery Orthopaedic Surgery of the Spine
DX: G47.10 Hypersomnia, unspecified (principal)
CPT/HCPCS: 97035; 97110; 97140; 97162; 97530

== ENCOUNTER → 2024-11-28 | Outpatient (CLI) | payer OTHER, SELFPAY ==
--- NOTE | 2024-11-28 16:05 | RAD_ITS ---
INDICATION: PAIN EXAMINATION/TECHNIQUE: X-RAY - XR Hips Bilateral with Pelvis when performed; Min 5 Views COMPARISON: Right hip radiographs is dated 11/12/2021. FINDINGS: PELVIC BONES: No displaced fracture, destructive or sclerotic lesions. Note that overlapping bowel shadows may however obscure fine detail. Sacroiliac joints are unremarkable. No widening of the pubic symphysis. HIPS: There is minimal degenerative arthrosis of the hip joints bilaterally. No displaced fracture seen. SOFT TISSUES: There are small calcified phleboliths in the pelvis. No soft tissue swelling or gas. RAD/Hips B/L min 2 views w/ Pelvis IMPRESSION: Minimal degenerative arthrosis of the hip joints bilaterally. No evidence of displaced pelvic or hip fracture. Electronically Signed: Rodney Castillo MD at 9:03 EST ,
== END | disposition home or self-care (01) ==
LOC: MTRAD 16:01
PROVIDERS: PCP Preventive Medicine Occupational Medicine; Referring Provider Clinical Nurse Specialist Adult Health; Visit Provider Clinical Nurse Specialist Adult Health
DX: M25.551 Pain in right hip (principal); M25.552 Pain in left hip
CPT/HCPCS: 73521